=== PATIENT | male | born 1995 | race Caucasian/White ===

== ENCOUNTER 2022-03-29 13:02 | Outpatient (CLI) | payer OTHER, MEDICAID, SELFPAY ==
[2022-03-29 21:54] LABS: Albumin* 4.8 g/dL (3.3-5.0)
[2022-03-29 21:55] LABS: Chloride* 109 mmol/L (96-114); Sodium* 144 mmol/L (135-149)
[2022-03-29 21:56] LABS: Potassium* 4.3 mmol/L (3.6-5.1)
[2022-03-29 21:57] LABS: Bilirubin Total* 0.5 mg/dL (0.1-1.5); Carbon Dioxide* 24 mmol/L (20-32); Cholesterol* 112 mg/dL (90-199); Creatinine* 1.3 mg/dL (0.5-1.5); Estimated Glomerular Filt Rate 79 ml/min
[2022-03-29 21:58] LABS: Alanine Aminotransferase* 38 U/L (4-50); Alkaline Phosphatase* 117 U/L (40-150); Aspartate Amino Transferase* 28 U/L (12-35); Blood Urea Nitrogen* 13 mg/dL (5-24); Calcium* 9.8 mg/dL (8.4-10.6); Glucose* 92 mg/dL (60-115); Total Protein* 7.2 g/dL (6.0-8.3); Triglycerides* 239 mg/dL (40-149)
[2022-03-29 21:59] LABS: HDL Cholesterol* 29 mg/dL (>=40); LDL Cholesterol Calculated 35 mg/dL (<100)
[2022-03-29 22:13] LABS: Vitamin D 25 Hydroxy* 50 ng/mL (30-80)
== END 2022-03-29 13:03 | disposition home or self-care (01) ==
PROVIDERS: PCP Family Medicine; Visit Provider Family Medicine
DX: Z00.00 Encounter for general adult medical examination without abnormal findings (principal); E55.9 Vitamin D deficiency, unspecified; E03.9 Hypothyroidism, unspecified; Z13.6 Encounter for screening for cardiovascular disorders
CPT/HCPCS: 80053; 80061; 82306; 84443

== ENCOUNTER 2022-04-04 07:21 | Emergency (ER) | payer OTHER, MEDICAID, SELFPAY ==
[2022-04-04 07:24] VITALS: BP 164/92; PULSE 57; RESP 16; TEMP 36.8; O2SAT 98; BMI 32.5
--- NOTE | 2022-04-04 07:47 | ED.EYEPROB ---
HPI - Eye Problem General Chief complaint: Eye Problems Stated complaint: burned eyes, plasma cutting Time Seen by Provider: 04/04/22 07:35 History of Present Illness HPI Narrative: 26-year-old young man presenting to the emergency department with complaint of burning eye pain. Using a plasma cutter yesterday and while protected eyes from particles was not protected adequately from the light. Woke with increased eye pain and burning. Good deal of photophobia. Has used the Eye Clinic in [place] in the past. This is where he lives. Related Data Home Medications Medication Instructions Recorded Confirmed oxcarbazepine 300 mg tablet 300 mg PO BID 10/11/21 04/04/22 clonidine HCl 0.1 mg tablet 0.1 mg PO TID 03/29/22 04/04/22 fluoxetine 40 mg capsule 40 mg PO DAILY 03/29/22 04/04/22 trazodone 150 mg tablet 150 mg PO QDAY 03/29/22 04/04/22 Previous Rx's Medication Instructions Recorded levothyroxine 200 mcg tablet 200 mcg PO QDAY #30 tabs 03/29/22 Allergies Allergy/AdvReac Type Severity Reaction Status Date / Time No Known Allergies Allergy Verified 04/04/22 08:28 Review of Systems Status of ROS: Reports: 6 or more systems reviewed and unremarkable except as noted in History and below [facility] Medical History (Updated 04/04/22 @ 08:38 by Carlton Stacy MD) Asthma (02/17/12) Excessive anger 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 Primarily lives w/dad; parents in 2014 Non-smoker Smoking Status: Never smoker Exam Narrative: Exam Narrative: Pleasant. Wearing eyeglasses. Clearly quite photophobic. Eyes are watering. Rhinorrhea. Examination of the eye shows diffuse scleral injection. Pupils are reactive to light accommodation. Rather sensitive though. I do place tetracaine to allow for further exam. More close up inspection I do not appreciate any foreign body. I did not examine further with slit-lamp or fluorescein due to tenderness. Const: Vital Signs, click to edit/add: Vital Signs - 24 hr 04/04/22 07:24 Temperature 98.2 F Pulse Rate [Right Pulse Oximeter] 57 L Respiratory Rate 16 Blood Pressure [Ri ght Upper Arm] 164/92 H Pulse Oximetry 98 Oxygen Delivery Me thod Room Air Documenting provider has reviewed patient's vital signs: yes Course Vital Signs Vital signs: Initial Vital Signs Temperature 98.2 F 04/04/22 07:24 Temperature Source Temporal Artery Scan 04/04/22 07:24 Pulse Rate 57 L 04/04/22 07:24 Respiratory Rate 16 04/04/22 07:24 Blood Pressure 164/92 H 04/04/22 07:24 Blood Pressure Mean 116 04/04/22 07:24 Blood Pressure Position Sitting 04/04/22 07:24 Pulse Oximetry 98 04/04/22 07:24 Oxygen Delivery Method 04/04/22 07:24 Vital Signs Temperature 98.2 F 04/04/22 07:24 Pulse Rate 57 L 04/04/22 07:24 Respiratory Rate 16 04/04/22 07:24 Blood Pressure 164/92 H 04/04/22 07:24 Pulse Oximetry 98 04/04/22 07:24 Oxygen Delivery Method 04/04/22 07:24 Temperature 98.2 F 04/04/22 07:24 Pulse Rate 57 L 04/04/22 07:24 Respiratory Rate 16 04/04/22 07:24 Blood Pressure 164/92 H 04/04/22 07:24 Pulse Oximetry 98 04/04/22 07:24 Oxygen Delivery Method 04/04/22 07:24 MDM - Eye Problem MDM Narrative Medical decision making narrative: Dosed with tetracaine did offer temporary relief. Reached out to [facility] and spoke with Dr. Mendoza. Will be also placing cyclopentolate drops and erythromycin ointment. Ordered for ibuprofen here. Discharge Plan Discharge Clinical Impression: Line Maintenance's flash of both eyes Patient Disposition: Home, Self-Care Condition: Stable Additional Instructions: Can take up to 800 mg of ibuprofen per dose or up to 1000 mg of acetaminophen per dose. Alternative to the ibuprofen might be up to 500 mg naproxen 2 times daily. The ibuprofen or naproxen would probably be good to take with a little food. Place erythromycin ophthalmic ointment 4 times daily with the last dose at bedtime. The cyclopentolate drops can be used up to 4 times daily. You probably won't need them beyond 3 days. You should be feeling better by this evening or tomorrow morning. If you are still very uncomfortable in 3 days, please be seen. I did speak with on-call provider at [facility] today. They would be happy to see you if needed or you can follow-up at your own eye clinic. Prescriptions: No Action oxcarbazepine 300 mg tablet 300 mg PO BID clonidine HCl 0.1 mg tablet 0.1 mg PO TID fluoxetine 40 mg capsule 40 mg PO DAILY trazodone 150 mg tablet 150 mg PO QDAY levothyroxine 200 mcg tablet 200 mcg PO QDAY Qty: 30 1RF Follow Up/Referrals: Wesly Smith MD [Referring] - Stand Alone Forms: [employer] Info Instructions
[2022-04-04] MEDS: TETRACAINE 0.5% OPHTH 2 DROP EYE-BOTH (08:10)
[2022-04-04] MEDS: IBUPROFEN 400 MG TABLET 800 MG PO (08:19)
== END 2022-04-04 08:55 | disposition home or self-care (01) ==
PROVIDERS: Emergency Provider Family Medicine; PCP Family Medicine
DX: T26.32XA Burns of other specified parts of left eye and adnexa, initial encounter (principal); T26.31XA Burns of other specified parts of right eye and adnexa, initial encounter; W89.0XXA Exposure to welding light (arc), initial encounter
CPT/HCPCS: 99283; A9270

== ENCOUNTER 2022-09-16 08:31 | Emergency (ER) | payer MEDICAID, SELFPAY ==
[2022-09-16 08:38] VITALS: BP 143/82; PULSE 83; RESP 18; TEMP 36.5; O2SAT 97; BMI 33.4
--- NOTE | 2022-09-16 09:31 | CRLHL7_ITS ---
For Patients: As a result of the Cures Act, medical imaging exams and procedure reports are released immediately into your electronic medical record. You may view this report before your referring provider. If you have questions, please contact your health care provider. INDICATION: Injury. TECHNIQUE: Left wrist 3 view. COMPARISON: None. FINDINGS: There is a subtle transverse lucency through the distal pole of the scaphoid bone which may represent a nondisplaced fracture. No dislocation. Soft tissues are unremarkable. IMPRESSION: Possible subtle nondisplaced fracture through the distal pole of the scaphoid bone. Correlate for any tenderness in this region. Dictated by Nanci Collins MD @ 09/16/2022 11:27:19 AM (Electronically Signed)
--- NOTE | 2022-09-16 09:32 | ED_ITS ---
HPI - Extremity Injury (Upper) General Chief Complaint: Extremity Pain/Injury, Upper Stated Complaint: left wrist pain Time Seen by Provider: 09/16/22 09:29 History of Present Illness HPI narrative: This 26-year-old male comes in reporting pain in his left wrist from an injury that occurred about a week ago. He states that he was lifting a cabinet and felt a pop in his left wrist. Since then he has had persistent pain. He reports a remote injury of a wrist fracture. He does have normal range of motion but experiences increased pain when doing so. Related Data Home Medications Medication Instructions Recorded Confirmed oxcarbazepine 300 mg tablet 300 mg PO BID 10/11/21 04/04/22 clonidine HCl 0.1 mg tablet 0.1 mg PO TID 03/29/22 04/04/22 fluoxetine 40 mg capsule 40 mg PO DAILY 03/29/22 04/04/22 trazodone 150 mg tablet 150 mg PO QDAY 03/29/22 04/04/22 Previous Rx's Medication Instructions Recorded levothyroxine 200 mcg tablet See Rx Instructions .Route 05/16/22 .COMPLEX #90 tabs ketorolac 10 mg tablet 10 mg PO Q8H 5 days #15 tabs 09/16/22 Allergies Allergy/AdvReac Type Severity Reaction Status Date / Time No Known Allergies Allergy Verified 09/16/22 08:52 Review of Systems Status of ROS: Reports: 10 or more systems reviewed and unremarkable except as noted in History and below Narrative: Constitutional: No fevers, no weight gain or loss. Eyes: No discharge. No vision changes. HENT: No congestion, no sore throat, no ear pain. Cardiovascular: No chest pain, no palpitations. Respiratory: No shortness of breath, no wheezes, no cough. Gastrointestinal: No abdominal pain, no vomiting, no diarrhea. Genitourinary: No dysuria, no hematuria. Musculoskeletal: Normal range of motion. Skin: No rashes, no pruritis. Neurological: No dizziness, weakness, sensory change, speech change. Endo/Heme/Allergies: No bruising or bleeding. No polydipsia. Pysch: no suicidality, no anxiety, no insomnia. All other systems reviewed and are negative. 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) ?S06.9X9S - Unspecified intracranial injury with loss of consciousness of unspecified duration, sequela (ICD-10) Asthma (02/17/12) ?J45.909 - Unspecified asthma, uncomplicated (ICD-10) Surgical History (Updated 10/10/21 @ 09:42 by Hadley Lazo) History of tympanostomy tube placement ?Z96.22 - Myringotomy tube(s) status (ICD-10) History of tonsillectomy ?Z90.89 - Acquired absence of other organs (ICD-10) History of cholecystectomy ?Z90.49 - Acquired absence of other specified parts of digestive tract (ICD-1 0) Family History (Updated 10/10/21 @ 09:43 by Hadley Lazo) Mother Asthma Von Willebrand disease Sister Asthma Von Willebrand disease Maternal Grandfather Type 1 diabetes mellitus Father Sleep apnea Social History (Updated 10/10/21 @ 09:44 by Hadley Lazo) Narrative: Lives with family. Primarily lives w/dad; parents in 2014 Non-smoker Smoking Status: Never smoker Do you use any of these nicotine containing products: Smokeless Tobacco Second hand tobacco smoke exposure: No How often do you have a drink containing alcohol: never How often do you have six or more drinks on one occasion: Never AUDIT-C Alcohol total score: 0 Non-prescribed substance use: denies use service: No Exam Narrative: Exam Narrative: Constitutional: Well-developed, well-nourished, no acute distress. HEENT: Normocephalic, atraumatic. Neck: Normal range of motion. Nontender. Supple. Heart: Intact distal pulses. Lungs: No chest discomfort. No wheezes, rhonchi, or rales. Abdomen: Nontender. Back: Normal range of motion. Extremities: Diffuse tenderness in the left wrist without any sign of deformity or swelling. Skin: Intact. No rash. Warm. No erythema or pallor. Neurologic: No altered sensation. No weakness. Alert and oriented. Psychiatric: No suicidality. No anxiety or depression. No insomnia. Nursing notes and vitals signs are reviewed. Const: Vital Signs, click to edit/add: Vital Signs - 24 hr 09/16/22 08:38 Temperature 97.7 F Pulse Rate [Pulse Oximeter] 83 Respiratory Rate 18 Blood Pressure [Le ft Upper Arm] 143/82 H Pulse Oximetry 97 Oxygen Delivery Me thod Room Air Course Vital Signs Vital signs: Initial Vital Signs Temperature 97.7 F 09/16/22 08:38 Temperature Source Temporal Artery Scan 09/16/22 08:38 Pulse Rate 83 09/16/22 08:38 Respiratory Rate 18 09/16/22 08:38 Blood Pressure 143/82 H 09/16/22 08:38 Blood Pressure Mean 102 09/16/22 08:38 Blood Pressure Position Sitting 09/16/22 08:38 Pulse Oximetry 97 09/16/22 08:38 Oxygen Delivery Method Room Air 09/16/22 08:38 Vital Signs Temperature 97.7 F 09/16/22 08:38 Pulse Rate 83 09/16/22 08:38 Respiratory Rate 18 09/16/22 08:38 Blood Pressure 143/82 H 09/16/22 08:38 Pulse Oximetry 97 09/16/22 08:38 Oxygen Delivery Method Room Air 09/16/22 08:38 Temperature 97.7 F 09/16/22 08:38 Pulse Rate 83 09/16/22 08:38 Respiratory Rate 18 09/16/22 08:38 Blood Pressure 143/82 H 09/16/22 08:38 Pulse Oximetry 97 09/16/22 08:38 Oxygen Delivery Method Room Air 09/16/22 08:38 MDM - Extremity Injury (Upper) MDM Narrative Medical decision making narrative: This patient comes in with persistent pain in his left wrist from an injury that occurred about a week ago. X-ray imaging by my review shows now sign of fracture or dislocation. Most likely this is soft tissue injury of his wrist. The patient did receive a wrist splint and a prescription for Toradol. He is encouraged to get out of the splint regularly and work on range of motion and increase activity as tolerated. Discharge Plan Discharge Clinical Impression: Left wrist sprain Patient Disposition: Home, Self-Care Condition: Unchanged Additional Instructions: Wear splint as needed. Take medication as needed and directed. Increase activity as tolerated. Follow up with clinic if not improving. Prescriptions: New ketorolac 10 mg tablet 10 mg PO Q8H 5 Days Qty: 15 0RF No Action oxcarbazepine 300 mg tablet 300 mg PO BID clonidine HCl 0.1 mg tablet 0.1 mg PO TID fluoxetine 40 mg capsule 40 mg PO DAILY trazodone 150 mg tablet 150 mg PO QDAY levothyroxine 200 mcg tablet See Rx Instructions .ROUTE .COMPLEX Qty: 90 3RF Dose Instruction: TAKE ONE TABLET BY MOUTH EVERY DAY Rx Instructions: TAKE ONE TABLET BY MOUTH EVERY DAY Follow Up/Referrals: Chary Del Toro DO [Primary Care Provider] - Stand Alone Forms: [employer] Info Instructions
== END 2022-09-16 11:15 | disposition home or self-care (01) ==
PROVIDERS: Emergency Provider Emergency Medicine Emergency Medical Services; PCP Family Medicine
DX: S63.502A Unspecified sprain of left wrist, initial encounter (principal); X50.0XXA Overexertion from strenuous movement or load, initial encounter
CPT/HCPCS: 29125; 73110; 99283; 99284

== ENCOUNTER 2022-11-04 08:21 | Emergency (ER) | payer MEDICAID, SELFPAY ==
[2022-11-04 08:24] VITALS: BP 142/82; PULSE 86; RESP 16; TEMP 36.3; O2SAT 99; BMI 37.9
--- NOTE | 2022-11-04 08:37 | ED_ITS ---
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 Patient noted that 1 and half months ago he was lifting some heavy steel and had a sudden onset of left-sided low back pain with radiation superiorly and inferiorly into the back of his leg. He had no loss of bowel or bladder control at that time and the pain lasted for a few days. He was seen by his worker's comp at which time x-rays were taken any tells me that they were okay. He was then placed in physical therapy for approximately 6 sessions. His worker's comp company changed and they discontinued the physical therapy in told him that he would need to stretch. He has been on light duty since that time. Unfortunately he still continues to have low back pain intermittently that will radiate into his leg. He is having a hard time with any bending as it increases his discomfort. He has not lost control of his bowel or bladder and denies any perineal numbness. He does not like taking pain medications. He has tried to continue his stretching. He is interested in MRI and further workup today as he feels he is not getting any better. He is not experiencing any tripping or numbness and tingling of the foot. Related Data Home Medications Medication Instructions Recorded Confirmed oxcarbazepine 300 mg tablet 300 mg PO BID 10/11/21 11/04/22 clonidine HCl 0.1 mg tablet 0.1 mg PO TID 03/29/22 11/04/22 fluoxetine 40 mg capsule 40 mg PO DAILY 03/29/22 11/04/22 trazodone 150 mg tablet 150 mg PO QDAY 03/29/22 11/04/22 desmopressin 0.2 mg tablet 0.2 - 0.4 mg PO QPM 11/04/22 11/04/22 lithium carbonate 450 mg 900 mg PO BID 11/04/22 11/04/22 tablet,extended release Previous Rx's Medication Instructions Recorded levothyroxine 200 mcg tablet See Rx Instructions .Route 05/16/22 .COMPLEX #90 tabs Allergies Allergy/AdvReac Type Severity Reaction Status Date / Time No Known Allergies Allergy Verified 11/04/22 08:29 Review of Systems Status of ROS: Reports: 6 or more systems reviewed and unremarkable except as noted in History and below Const: Denies: fever ENMT: Denies: neck pain Cardio: Denies: chest pain or shortness of breath with exertion Resp: Denies: shortness of breath GI: Denies: abdominal pain : Denies: urinary urgency Musculo: Reports: back pain and extremity pain (Intermittently); Denies: neck pain Neuro: Denies: numbness in extremities or lack of coordination PFSH PFS Medical History Excessive anger ?R45.4 - Irritability and anger (ICD-10) Pyloric stenosis (02/17/12) ?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) Left calcaneal fracture ?S92.002A - Unspecified fracture of left calcaneus, initial encounter for closed fracture (ICD-10) 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) ?S06.9X9S - Unspecified intracranial injury with loss of consciousness of unspecified duration, sequela (ICD-10) Asthma (02/17/12) ?J45.909 - Unspecified asthma, uncomplicated (ICD-10) Surgical History History of tympanostomy tube placement ?Z96.22 - Myringotomy tube(s) status (ICD-10) History of tonsillectomy ?Z90.89 - Acquired absence of other organs (ICD-10) History of cholecystectomy ?Z90.49 - Acquired absence of other specified parts of digestive tract (ICD- 10) Family History Mother Asthma Von Willebrand disease Sister Asthma Von Willebrand disease Maternal Grandfather Type 1 diabetes mellitus Father Sleep apnea Social History Narrative: Lives with family. Primarily lives w/dad; parents in 2015 Non-smoker Smoking Status: Never smoker Do you use any of these nicotine containing products: Smokeless Tobacco Second hand tobacco smoke exposure: No How often do you have a drink containing alcohol: never How often do you have six or more drinks on one occasion: Never AUDIT-C Alcohol total score: 0 Non-prescribed substance use: denies use service: No Exam Narrative: Exam Narrative: Alert and oriented. Very pleasant young man. No acute distress. External ears eyes nose clear. No respiratory distress. Palpation down thoracic and lumbar spine does not yield any tenderness. No tenderness in the sciatic notch. Patient has full sensation of the lower extremities. He has intact hip flexion knee extension with equal strength. He did have some complaints of left-sided back pain especially with hip flexion. Knee flexion was slightly weaker on the left. Very subtle. Patient has full sensation of the lower extremities. DTRs 1+ at the knees and symmetrical. Slight weakness dorsiflexion of the left great toe. Ankle strength is intact. Bending at the waist increases discomfort at approximately 25?. Const: Vital Signs, click to edit/add: Vital Signs - 24 hr 11/04/22 08:24 Temperature 97.3 F L Pulse Rate [Right Pulse Oximeter] 86 Respiratory Rate 16 Blood Pressure [Ri ght Upper Arm] 142/82 H Pulse Oximetry 99 Oxygen Delivery Me thod Room Air Documenting provider has reviewed patient's vital signs: yes Course Vital Signs Vital signs: Initial Vital Signs Temperature 97.3 F L 11/04/22 08:24 Temperature Source Temporal Artery Scan 11/04/22 08:24 Pulse Rate 86 11/04/22 08:24 Respiratory Rate 16 11/04/22 08:24 Blood Pressure 142/82 H 11/04/22 08:24 Blood Pressure Mean 102 11/04/22 08:24 Blood Pressure Position Sitting 11/04/22 08:24 Pulse Oximetry 99 11/04/22 08:24 Oxygen Delivery Method Room Air 11/04/22 08:24 Vital Signs Temperature 97.3 F L 11/04/22 08:24 Pulse Rate 86 11/04/22 08:24 Respiratory Rate 16 11/04/22 08:24 Blood Pressure 142/82 H 11/04/22 08:24 Pulse Oximetry 99 11/04/22 08:24 Oxygen Delivery Method Room Air 11/04/22 08:24 Temperature 97.3 F L 11/04/22 08:24 Pulse Rate 86 11/04/22 08:24 Respiratory Rate 16 11/04/22 08:24 Blood Pressure 142/82 H 11/04/22 08:24 Pulse Oximetry 99 11/04/22 08:24 Oxygen Delivery Method Room Air 11/04/22 08:24 MDM - Back Pain/Injury MDM Narrative Medical decision making narrative: 1. Low back pain with radiculopathy-patient has very subtle dorsiflexion weakness of the left great toe. He has discomfort with any sort of flexion or extension of the low back flexion seems to increases pain more. At this time I do think he needs to see back child care attendant and I have provided the phone number for him as well as the names of Dr. Estrella and David. I do suggest MRI as is has been 6 weeks since his injury. Because this is worker's comp, I have written my suggestions for Gio to give to his workplace. In the meantime he does not like taking medications and therefore suggest continued stretching and icing of the area of discomfort. He will need to seek medical attention if he develops increasing weakness, increasing pain, loss of bowel or bladder control and as needed. 2. Disposition-home at this time. Return as needed. New 9 no x-rays done today as he has previous x-rays and they were reassuring per patient. No red flag symptoms today to indicate emergent MRI in the ER. Medical Records Attestation: I reviewed the patient's medical records. Discharge Plan Discharge Clinical Impression: Low back pain Qualifiers: Chronicity: unspecified Back pain laterality: left Sciatica presence: unspecified whether sciatica present Qualified Code(s): M54.50 - Low back pain, unspecified Radiculopathy Qualifiers: Spinal region: lumbosacral Qualified Code(s): M54.17 - Radiculopathy, lumbosacral region Patient Disposition: Home, Self-Care Condition: Unchanged Additional Instructions: At this time I recognize that you do not like taking medications. If needed you may use ibuprofen for discomfort. I recommend continued stretching of the low back with ice placed on low back after the stretching. Overall I think that you do need consultation with a back child care attendant. I suggest seeing Dr. Hernandez or Delores at the [facility]. The phone number is [phone]. I suspect that they will order an MRI and then place you in active physical therapy for strengthening of the low back. Seek medical attention for sudden worsening symptoms especially loss of bowel or bladder control, weakness that is worsening and as needed. Prescriptions: No Action oxcarbazepine 300 mg tablet 300 mg PO BID clonidine HCl 0.1 mg tablet 0.1 mg PO TID fluoxetine 40 mg capsule 40 mg PO DAILY trazodone 150 mg tablet 150 mg PO QDAY desmopressin 0.2 mg tablet 0.2 - 0.4 mg PO QPM lithium carbonate 450 mg tablet extended release 900 mg PO BID levothyroxine 200 mcg tablet See Rx Instructions .ROUTE .COMPLEX Qty: 90 3RF Dose Instruction: TAKE ONE TABLET BY MOUTH EVERY DAY Rx Instructions: TAKE ONE TABLET BY MOUTH EVERY DAY Follow Up/Referrals: Chary Del Toro DO [Primary Care Provider] - Stand Alone Forms: [employer] Info Instructions
== END 2022-11-04 09:34 | disposition home or self-care (01) ==
LOC: ED 09:32
PROVIDERS: Emergency Provider Family Medicine
DX: M54.16 Radiculopathy, lumbar region (principal)
CPT/HCPCS: 99283

== ENCOUNTER 2024-01-09 12:33 | Emergency (ER) | payer MEDICAID, SELFPAY ==
[2024-01-09 12:54] VITALS: BP 166/76; PULSE 85; RESP 18; TEMP 37.3; O2SAT 99; BMI 37.9
--- NOTE | 2024-01-09 14:24 | ED.GENADULT ---
HPI - General Adult General Date Seen: 01/09/24 Chief complaint: Extremity Pain/Injury, Lower Stated complaint: Knee injury Time Seen by Provider: 01/09/24 14:17 History of Present Illness HPI narrative: 28-year-old male with a past medical history of vitamin-D deficiency, hypothyroidism, epilepsy with complex partial seizures, adrenal insufficiency presenting to the ER today with left knee pain. He injured his knee on Friday, 3 days ago when he stepped into a hole and felt like he hyperextended his knee. He has been trying to ice his of knee without much improvement in his pain. He was not having too much pain on Friday that after his accident but has had increasing pain last night and into today. He has been taking ibuprofen without much improvement in pain. He has pain when he tries to walk on his knee and pain when he tries to extend his knee. He is not able to fully extend his knee. Pain is predominantly in the anterior part of the knee. He sometimes feels like the knee might lock up with the stretches at all the way out. He has a history of of a distal femur fracture about 20 years ago. Related Data Home Medications ?Medication ?Instructions ?Recorded ?Confirmed oxcarbazepine 300 mg tablet 300 mg PO BID 10/11/21 04/22/23 clonidine HCl 0.1 mg tablet 0.1 mg PO TID 03/29/22 04/22/23 fluoxetine 40 mg capsule 40 mg PO DAILY 03/29/22 04/22/23 trazodone 150 mg tablet 150 mg PO QDAY 03/29/22 04/22/23 desmopressin 0.2 mg tablet 0.2 - 0.4 mg PO QPM 11/04/22 04/22/23 lithium carbonate 450 mg 900 mg PO BID 11/04/22 04/22/23 tablet,extended release lurasidone 20 mg tablet mg PO 04/22/23 04/22/23 naproxen sodium 220 mg capsule 440 mg PO QDAY 04/22/23 04/22/23 ([place]) Previous Rx's ?Medication ?Instructions ?Recorded cephalexin 500 mg capsule 500 mg PO BID #14 caps 04/22/23 levothyroxine 200 mcg tablet 200 mcg PO DAILY #60 tabs 11/20/23 Allergies Allergy/AdvReac Type Severity Reaction Status Date / Time No Known Allergies Allergy Verified 01/09/24 12:54 [facility] Medical History Excessive anger ?R45.4 - Irritability and anger (ICD-10) Pyloric stenosis (02/17/12) ?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) Left calcaneal fracture ?S92.002A - Unspecified fracture of left calcaneus, initial encounter for closed fracture (ICD-10) 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) ?S06.9X9S - Unspecified intracranial injury with loss of consciousness of unspecified duration, sequela (ICD-10) Asthma (02/17/12) ?J45.909 - Unspecified asthma, uncomplicated (ICD-10) Surgical History History of tympanostomy tube placement ?Z96.22 - Myringotomy tube(s) status (ICD-10) History of tonsillectomy ?Z90.89 - Acquired absence of other organs (ICD-10) History of cholecystectomy ?Z90.49 - Acquired absence of other specified parts of digestive tract (ICD-10) Family History Mother Asthma Von Willebrand disease Sister Asthma Von Willebrand disease Maternal Grandfather Type 1 diabetes mellitus Father Sleep apnea Social History Narrative: Lives with family. Primarily lives w/dad; parents in 2014 Non-smoker Smoking Status: Current every day smoker What tobacco products do you use: cigarettes Do you use any of these nicotine containing products: Smokeless Tobacco Second hand tobacco smoke exposure: No How often do you have a drink containing alcohol: 2-4 times a month How often do you have six or more drinks on one occasion: Never AUDIT-C Alcohol total score: 2 Non-prescribed substance use: denies use service: No Exam Narrative: Exam Narrative: Constitutional: Appears well-developed and well-nourished. Active. Non-toxic. HENT: Head: Atraumatic. No signs of injury. Nose: No nasal discharge. Mouth/Throat: Mucous membranes are moist. Pharynx is normal. Tonsils symmetric. Uvula midline. Airway patent. Eyes: Conjunctivae normal and EOM are normal. Pupils are equal, round, and reactive to light. Right eye exhibits no discharge. Left eye exhibits no discharge. No icterus. Neck: Normal range of motion. Neck supple. No adenopathy. No stridor. Cardiovascular: Normal rate and regular rhythm. No murmur heard. No murmurs, rubs, or gallops. Brisk capillary refill Pulmonary/Chest: Effort normal. No stridor. No respiratory distress. No wheezes.No rhonchi. No rales. No retractions. Abdominal: Soft. Bowel sounds are normal. No distension. No mass. There is no tenderness. There is no rebound and no guarding. Musculoskeletal: uninjured and normal except for his left knee. Left lower extremity: Normal inspection. No bruising, ecchymosis, deformity. Hip nontender. Quadriceps, hamstring, femoral shaft nontender. Distal femur nontender. Quadriceps tendon nontender. He is tender over the patellar tendon and the tibial tuberosity. No crepitus. No bruising or swelling there. No visible or palpable knee joint effusion. He is able to flex his knee to just beyond 90? and extend within about 10-20 degrees of full extension. Complete extension is limited by pain and apprehension. No obvious ligamentous laxity of the ACL, PCL, MCL, LCL but exam is limited by apprehension. Posteriorly is nontender. No palpable mass or bruising in the popliteal fossa. Chou, ankle, foot are nontender. Gastrocnemius and Achilles nontender. Intact distal sensory function in the medial and lateral malleoli, medial and lateral foot, dorsal 1st webspace, sole of the foot. Intact toe wiggling. Strong DP pulse with brisk distal cap refill. Neurological: Alert. Normal strength. No cranial nerve deficit or sensory deficit. Coordination normal. GCS eye subscore is 4. GCS verbal subscore is 5. GCS motor subscore is 6. Skin: Skin is warm. No rash noted. Const: Vital Signs, click to edit/add: Vital Signs - 24 hr 01/09/24 12:54 Temperature 99.2 F Pulse Rate [Pulse Oximeter] 85 Respiratory Rate 18 Blood Pressure [Ri ght Upper Arm] 166/76 H Pulse Oximetry 99 Oxygen Delivery Me thod Room Air Course Vital Signs Vital signs: Initial Vital Signs Temperature 99.2 F 01/09/24 12:54 Temperature Source Temporal Artery Scan 01/09/24 12:54 Pulse Rate 85 01/09/24 12:54 Pulse Rhythm Regular 01/09/24 12:54 Respiratory Rate 18 01/09/24 12:54 Blood Pressure 166/76 H 01/09/24 12:54 Blood Pressure Mean 106 H 01/09/24 12:54 Blood Pressure Position Sitting 01/09/24 12:54 Pulse Oximetry 99 01/09/24 12:54 Oxygen Delivery Method Room Air 01/09/24 12:54 Vital Signs Temperature 99.2 F 01/09/24 12:54 Pulse Rate 85 01/09/24 12:54 Respiratory Rate 18 01/09/24 12:54 Blood Pressure 166/76 H 01/09/24 12:54 Pulse Oximetry 99 01/09/24 12:54 Oxygen Delivery Method Room Air 01/09/24 12:54 Temperature 99.2 F 01/09/24 12:54 Pulse Rate 85 01/09/24 12:54 Respiratory Rate 18 01/09/24 12:54 Blood Pressure 166/76 H 01/09/24 12:54 Pulse Oximetry 99 01/09/24 12:54 Oxygen Delivery Method Room Air 01/09/24 12:54 Medications Administered Medications: Discontinued Medications Generic Name Dose Route Start Last Admin Trade Name Freq PRN Reason Stop Dose Admin Ibuprofen 600 mg 01/09/24 14:49 01/09/24 14:57 Ibuprofen 600 Mg Tablet PO 01/09/24 14:50 600 mg ONCE ONE Administration Medical Decision Making [facility] Narrative Medical decision making narrative: 28-year-old male presenting to the ER today with left knee pain, primarily anterior knee pain as well as limited range of motion after he had an injury that occurred 2 nights ago. He stepped in a hole and hyperextended his knee. He is neurovascularly intact and history and physical are not consistent with a complete knee joint dislocation. X-rays are negative for any acute fracture. No evidence for any knee effusion. No redness or warmth suggest a nontraumatic cause of knee pain such as gouty or septic arthritis. Suspicion here is for probable internal derangement of the knee. Suspicious for possible meniscus tear or ligamentous injury. However, on my exam I cannot detect any obvious ligamentous laxity today. He will place him into a knee immobilizer. Will need close outpatient follow-up with orthopedic clinic within the next 3-5 days for re-evaluation. If symptoms are persistent may need MRI for further evaluation. Return precautions reviewed. Imaging Data XR left knee: Attestation: I have reviewed the pertinent imaging results. My impression: No acute fracture or dislocation. Radiologist's impression: Findings/Impression: Bones: Alignment is normal. No displaced fractures or bone lesions. Joint spaces: Unremarkable. Soft tissues: Unremarkable. Discharge Plan Discharge Clinical Impression: Injury of knee, left Patient Disposition: Home, Self-Care Condition: Stable Instructions: Crutch Instructions (ED), Knee Pain (ED) Additional Instructions: Your x-rays look good. Nothing broken or dislocated in her knee. However I am concerned he may have injured the cartilage (the meniscus) and or the ligaments in your knee. For now wear the knee brace to protect her knee from unusual bending or twisting. Keep resting her knee as much as possible. Use Tylenol or ibuprofen if needed for pain. You can use ice for 15 minutes every 2 hours to help reduce swelling and pain. Please follow-up with an orthopedic doctor to recheck your knee in the next 2-4 days. If needed you can call the [facility] Orthopedic Department to arrange an ER follow-up appointment. Call [phone] to arrange an ER follow-up appointment. Prescriptions: No Action lurasidone 20 mg tablet PO naproxen sodium [Aleve] 220 mg capsule 440 mg PO QDAY cephalexin 500 mg capsule 500 mg PO BID Qty: 14 0RF oxcarbazepine 300 mg tablet 300 mg PO BID clonidine HCl 0.1 mg tablet 0.1 mg PO TID fluoxetine 40 mg capsule 40 mg PO DAILY trazodone 150 mg tablet 150 mg PO QDAY desmopressin 0.2 mg tablet 0.2 - 0.4 mg PO QPM lithium carbonate 450 mg tablet extended release 900 mg PO BID levothyroxine 200 mcg tablet 200 mcg PO DAILY Qty: 60 0RF Follow Up/Referrals: Dara Oglesby PA-C [Primary Care Provider] - Stand Alone Forms: [facility] Info Instructions
--- NOTE | 2024-01-09 14:25 | CRLHL7_ITS ---
For Patients: As a result of the Cures Act, medical imaging exams and procedure reports are released immediately into your electronic medical record. You may view this report before your referring provider. If you have questions, please contact your health care provider. Indication: Trauma. Technique: Left knee, 3 views. Comparison: None. Findings/Impression: Bones: Alignment is normal. No displaced fractures or bone lesions. Joint spaces: Unremarkable. Soft tissues: Unremarkable. Dictated by David Escobar MD @ 01/09/2024 2:50:21 PM (Electronically Signed)
[2024-01-09] MEDS: IBUPROFEN 600 MG TABLET PO (14:57)
== END 2024-01-09 15:19 | disposition home or self-care (01) ==
PROVIDERS: Emergency Provider Emergency Medicine; PCP Physician Assistant Medical
DX: M25.562 Pain in left knee (principal); X50.1XXA Overexertion from prolonged static or awkward postures, initial encounter
CPT/HCPCS: 73562; 99282; 99283; A9270

== ENCOUNTER 2024-09-29 06:02 | Emergency (ER) | payer MEDICAID, SELFPAY ==
--- OUTSIDE RECORDS SUMMARY | 2015-05-01 04:35 | XMS_ITS | Continuity of Care Document ---
Author Organization [facility] Address [address] [address] [place] [address] Phone Care Team Providers Care Induction Heat Treater Name Role Phone Eloisa LÓPEZ, Junior Unavailable Unavaila ble Allergies, Adverse Reactions, Alerts Substance Reaction Status Criticality No Known Allergies Active No Inform ation Medications Medication Instructions Dosage Effective Dates (start - stop) Status Comments loperamide 2 mg tablet take 2 tablet by oral route 3 times every day as needed 4 MG - Active Bentyl 20 mg tablet take 1 tablet by ORA L route 2 times every day 20 MG - Active desmopressin 0.2 mg tablet take 2 tablet by oral route every day 0.4 MG - Active Tirosint 100 mcg capsule take 1 capsule by oral route every day 100 MCG - Active trazodone 50 mg tablet take 3 Tablet by Oral route every night 3 Tablet - Active oxcarbazepine 600 mg tablet take 1 tablet by oral route 2 times every day 600 MG - Active Vyvanse 50 mg capsule take 1 capsule by oral route every day in the morning 50 MG - Active lithium carbonate 300 mg capsule take 3 capsule by oral route 2 times every day 900 MG - Active minocycline 100 mg capsule take 1 capsule by oral route every day 100 MG - Active Vitamin B Complex tablet take 1 Tablet by Oral route every day 1 Tablet - Active melatonin 3 mg tablet take 1 Tablet by O ral route every bedtime as needed 1 Tablet - Active Procedures Procedure Date Init Hosp-da E&m Mod Severity 6 Offic/outpt E&m Estab Mod-hi 2 15 Routine Serum Collection Bld Ct; Hg/pltlt Ct Auto/compl 15 C-reactive Prot Comp Metabolic Panel Lipase Gg; Ige Gg; Iga, Igd, Igg, Igm, Ea Small Bowel PillCam Offic/outpt E&m Estab Low-mod 4 Offic/outpt E&m Estab Mod-hi 2 14 Ugi Endo; W/bx 1/mx Colonoscopy Flex; W/bx 1/mx Hepatic Function Panel Glutamyltransferase Gamma Offic/outpt E&m New Mod-hi Routine Serum Collection Advance Directives Directive Yes / No Effective Date File Name No Information Encounters Encounter Description Practice Location Reason(s) For Visit Diagnoses Date Provider Providers Copied on Encounter [facility] [address] [address], [place], [id number], tel:[phone] [facility] No Information 6 Eloisa Pacheco. [address], [id number], [place]. tel:[phone] Lb Cuenca MD. tel:[phone] Init Hosp-da E&m Mod Severity [facility] [address] [address], [place], [id number], [place] tel:[phone] [facility] No Information 6 Eloisa Pacheco. [address], [id number], [place]. tel:[phone] Offic/outpt E&m Estab Mod-hi 2 [facility], [address] [address], [place], [id number], [place] tel:[phone] [facility] GI Symptoms or Concerns (chief complaint) Abd Pain GeneralizedDi arrheaNausea And Vomiting 5 Eloisa Pacheco. [address] [facility], [facility], [place], [place], [id number], [place]. tel:[phone] Lb Cuenca MD. tel:[phone] erring Provider: Referral Self, USE FOR SELF REFERRALS. [facility], [address] [address], [place], [id number], [place] tel:[phone] [facility] No Information 4 No Information [facility], [address] [address], [place], [id number], [place] tel:[phone] Pediatric [facility] Abd Pain GeneralizedGe neralized abdominal pain 4 No Information Lb Cuenca MD. tel:[phone] [facility], [address] [address], [place], [id number], [place] tel:[phone] Pediatric [facility] Diarrhea 4 Tona LÓPEZ Chacorta. [address] [facility], [facility], [place], [place], [id number], [place]. tel:[phone] Lb Cuenca MD. tel:[phone] erring Provider: Lb Romano, [address], [place], [address]. tel:[phone] Offic/outpt E&m Estab Low-mod [facility], [address] [address], [place], [id number], [place] tel:[phone] [facility] GI Symptoms or Concerns (chief complaint) DiarrheaAbd Pain Generalized 4 No Information Lb Cuenca MD. tel:[phone] cialist: Radha Saunders MD, [facility] [address], [place], [address]. tel:[phone] erring Provider: Referral Self, USE FOR SELF REFERRALS. [facility], [address] [address], [place], [id number], [place] tel:[phone] [facility] RUQ Pain Dec-0 6-201 [address]. [address] [place] [address], [facility] [address], [place], [id number], [place]. tel:[phone] Offic/outpt E&m Estab Mod-hi 2 [facility], [address] [address], [place], [id number], [place] tel:[phone] [facility] GI Symptoms or Concerns (chief complaint) RLQ PainDiarrhea Dec-0 1 [address] Tona Whatley. [address] [place] [address], [id number], [place]. tel:[phone] Lb Cuenca MD. tel:[phone] erring Provider: Referral Self, USE FOR SELF REFERRALS. [facility], [address] [address], [place], [id number], [place] tel:[phone] [facility] No Information 1 4 Tona Whatley. [address] [place] [address], [place], [place], [id number], [place]. tel:[phone] Referring Provider: Lb Romano, [address], [place], [address]. tel:[phone] [facility], [address] [address], [place], [id number], [place] tel:[phone] [facility] RUQ Pain 2 7 4 No Information Offic/outpt E&m New Mod-hi [facility], [address] [address], [place], [id number], [place] tel:[phone] [facility] RUQ Pain July-0 8-201 4 No Information Referring Provider: Lb Romano, [address], [place], [address]. tel:[phone] Family History Family Member Type Diagnosis Age At Onset Maternal grandmother Problem (finding) ulcerative coli tis Mother Problem (finding) Alive and well Father Problem (finding) Alive and well Sister Problem (finding) celiac disease Immunizations Vaccine Date Status Comments Influenza, seasonal, injectable, preservative free, 3 yrs or older (36 mos+) administered Note: Invalid d ocumented admin date was . ; Source: Other Provider Influenza, seasonal, injectable, preservative free, 3 yrs or older (36 mos+) administered Note: Invalid d ocumented admin date was . ; Source: Other Provider Payers Payer name Insurance type Covered democrat ID Cee powell(s) [place] Medical Assistance [id number] Social History Type Description Quantity Date Captured Comments Alcohol Use Details Unknown Caffeine Use Details Unknown Tobacco Use Status No Information Smoking Status No Information Sex Male Chief Complaint And Reason For Visit No Information Reason For Referral Reason For Referral No Information History Of Present Illness Encounter Date Complaint History Of Prese nt Illness GI Symptoms or Concerns This is a 18-year-old white male with the complex past medical history as follows;1. Status post laparoscopic cholecystectomy for biliary dyskinesia in December 2013.2. Traumatic brain injury with mood disorder.3. Seizure disorder on antiepileptic medications.4. Hypothyroidism, on thyroxine replacement.5. Gastroesophageal reflux.6. Reactive airway disease.Gio is well-known to GI Service, has been seen by many of my partners in the past for chronic abdominal symptoms. I note he has undergone extensive workup including ultrasound scan of the abdomen, HIDA scan, which showed ejection fraction of 30% compared to normal of 35%, because his pain used to be localized to right upper quadrant with normal liver enzymes and ultrasound scan. He underwent laparoscopic cholecystectomy in December 2013 and made uneventful recovery. He was asymptomatic for approximately three months.In the last three months, he reports generalized abdominal pain worse after eat GI Symptoms or Concerns Gio is accompanied by his parents. He is a 18 year old seen for follow up of abdominal pain and diarrhea. He was last seen in the office last week and was briefly admitted to [facility] after that visit. There, he had a nasogastric golytely cleanout followed by an upper endoscopy and colonoscopy. These were normal with biopsies normal (lactase pending). Previous evlaution (recent) is outlined in Dr. Carbone's note from last week.I last say Gio in the Spring. At that time, his pain was more prominently right upper quadrant with radiation to the right shoulder. A HIDA scan showed a mild delay in the ejection fraction of 30%. There appeared to be some radioisotope that flowed into the stomach. For this reason, he was started on ursodiol (for possible bile gastritis). There was an initial good response to this; however, he then developed this current illness. He recalls having diarrhea previously, but at the time of his last visit, his complaints were more focused on pain and nausea. This presentation seems different with this diarrhea up to 8 times daily and night waking with stool. He has gained over 20 lbs since his visit in the Spring. He is on synthroid for hypothyroidism, and levels have been followed by parent's report. GI Symptoms or Concerns This is a followup evaluation. He is a 18-year-old boy with history of ongoing abdominal pain who was recently evaluated by my partner Dr. Rachael Gamboa in July of this year. At that time, blood work was done and he was found to have mildly elevated gamma-GT of 44 with normal hepatic function panel. A HIDA scan was done and was noted to be borderline normal with an ejection fraction of 30%. He was then started on ursodiol but as per the mother, his symptoms have not improved. He continues to complain of abdominal pain primarily in the right lower quadrant and has been receiving pain medications. He is also frequently nauseous. He has been missing school because of his pain and his oral intake has been decreased. As per the mother, he does not have any flu-like symptoms. He is frequently nauseous but there is no history of any vomiting. He also has had intermittent diarrhea and could stool about eight to ten times a day. There is no history of passing any blood or mucus in t Functional Status Date Functional Assessmen t No Information Instructions Date Instruction Additional Infor vicki 1. Lactose/fructose- restricted diet.2. Screening labs were sent today including CBC, comprehensive metabolic panel, lipase, C-reactive protein, complete celiac panel, and immunoglobulin profile.3. Stool studies for C. difficile toxin and hemoccult.4. Symptomatic treatment with ondansetron 8 mg sublingual p.r.n. q. 6 hours.5. To use loperamide 4 mg p.r.n. q. 6 to 8 hours for diarrhea.6. Continue omeprazole b.i.d.7. If his symptom persists/worsens, may need further investigation.8. Followup in GI Clinic in three months. Related to Abd Pain Generalized Abdomen Ultrasound; Complete Rel ated to Abd Pain Generalized 1. We will repeat th e HIDA scan as this is already scheduled. 2. Gio has an upcoming visit scheduled with one of the surgeons at [facility]. We discussed that I am not certain his pain is due to his gallbladder and I would not be confident that his pain would resolve with a cholecystectomy. We discussed that a lower ejection fraction (like 10% compared to his previous 30%) may be more suggestive that improvement would be seen after surgery, but that I am hesitant to strongly recommend surgery with these results. Certainly, I would defer to the opinion of the surgeon.3. I would like to try a trial of ciprofloxacin to treat a possible occult infection.4. We discussed possibly using medication typically designed for Irritable Bowel Syndrome to help manage some of the symptoms if there is no response to Cipro.5. He is interested in a dietitian visit as well to discuss his recent significant weight gain and to help find some guidance for dietary management. Related to Abd Pain Generalized Hepatobiliary system imaging, incl gallbladder with pharm Related to RUQ Pain Hepatobiliary system imaging, incl gallbladder with pharm Related to RUQ Pain 1. He would be hospi talized for pain management and for further evaluation.2. I plan to schedule for an upper endoscopy and colonoscopy with biopsies for further evaluation of his symptoms.3. Information obtained from the above will help us guide in further management. 4. After the clinic visit, we did contact the [facility] Emergency Department and the patient was referred there. Related to RLQ Pain EGD Related to Diarr hea Colonoscopy Related to Diarr hea Assessments Type Assessment Date No Information Patient Care Teams Name Effective Dates (start - stop) Status Members No Information
--- OUTSIDE RECORDS SUMMARY | 2015-05-01 04:35 | XMS_ITS | Continuity of Care Document ---
Author Organization [facility] Address [address] [address] [place] [address] Phone Care Team Providers Care Pulley Maintainer Name Role Phone Eloisa LÓPEZ, Junior Unavailable [...] Diagnoses Date Provider Providers Copied on Encounter [facility] [address] [address], [place], [id number], tel:[phone] [facility] No Information 6 Eloisa Pacheco. [address], [id number], [place]. tel:[phone] Lb Cuenca MD. tel:[phone] Init Hosp-da E&m Mod Severity [facility] [address] [address], [place], [id number], [place] tel:[phone] [facility] No Information 6 Eloisa Pacheco. [address], [id number], [place]. tel:[phone] Offic/outpt E&m Estab Mod-hi 2 [facility], [address] [address], [place], [id number], [place] tel:[phone] [facility] GI Symptoms or Concerns (chief complaint) Abd Pain GeneralizedDi arrheaNausea And Vomiting 5 Eloisa Pacheco. [address] [facility], [facility] [address], [place], [place], [id number], [place]. tel:[phone] Lb Cuenca MD. tel:[phone] erring Provider: Referral Self, USE FOR SELF REFERRALS. [facility], [address] [address], [place], [id number], [place] tel:[phone] [facility] No Information 4 No Information [facility], [address] [address], [place], [id number], [place] tel:[phone] [facility] Abd Pain GeneralizedGe neralized abdominal pain 4 No Information bL Cuenca MD. tel:[phone] [facility], [address] [address], [place], [id number], [place] tel:[phone] [facility] Diarrhea 4 Tona LÓPEZ Chacorta. [address] [facility], [facility] [address], [place], [place], [id number], [place]. tel:[phone] Lb Cuenca MD. tel:[phone] erring Provider: Lb Romano, [address], [place], [address]. tel:[phone] Offic/outpt E&m Estab Low-mod [facility], [address] [address], [place], [id number], [place] tel:[phone] [facility] GI Symptoms or Concerns (chief complaint) DiarrheaAbd Pain Generalized 4 No Information Lb Cuenca MD. tel:[phone] cialist: Radha Saunders MD, [facility]0 [facility] [address], [place], [address]. tel:[phone] erring Provider: Referral Self, USE FOR SELF REFERRALS. [facility], [address] [address], [place], [id number], [place] tel:[phone] [facility] RUQ Pain Dec-0 6-201 4 Tona Whatley. [address] [place] [address], [facility] [address], [place], [id number], [place]. tel:[phone] Offic/outpt E&m Estab Mod-hi 2 [facility], [address] [address], [place], [id number], [place] tel:[phone] [facility] GI Symptoms or Concerns (chief complaint) RLQ PainDiarrhea Dec-0 1 4 Tona Whatley. [address] [place] [address], [id number], [place]. tel:[phone] Lb Cuenca MD. tel:[phone] erring Provider: Referral Self, USE FOR SELF REFERRALS. [facility], [address] [address], [place], [id number], [place] tel:[phone] [facility] No Information 1 4 Tona Whatley. [address] [place] [address], [place], [place], [id number], [place]. tel:[phone] Referring Provider: Lb Romano, [address], [place], [address]. tel:[phone] [facility], [address] [address], [place], [id number], [place] tel:[phone] [facility] RUQ Pain 2 7 4 No Information Offic/outpt E&m New Mod-hi [facility], [address] [address], [place], [id number], [place] tel:[phone] [facility] RUQ Pain July-0 8-201 4 No Information Referring Provider: Lb Romano, [address], [place], [address]. tel:[phone] Family History Family Member Type Diagnosis Age [...] Insurance type Covered democrat ID Cee powell(s) [place] Medical Assistance [id number] Social History Type Description Quantity Date Captured [...] last week and was briefly admitted to [facility] after that visit. There, he had [...] the clinic visit, we did contact the [facility] Emergency Department and the patient was referred there. Related to RLQ Pain EGD Related to Diarr hea Colonoscopy Related to Diarr hea Assessments Type Assessment Date No Information Patient Care Teams Name Effective Dates (start - stop) Status Members No Information
--- OUTSIDE RECORDS SUMMARY | 2024-09-29 06:05 | XMS_ITS | Encounter Summary ---
Author Organization [facility] Address [address] [place] [address] Care Team Providers Care Digital Associate Media Director Name Role Phone Wesly Smith MD Primary Care Provider [phone] Encounter Details Date Type Department Care Team (Latest Contact Info) Description 04/25/1998 Orders Only Javi Perez MD [address] [place] [address] Social History Tobacco Use Types Packs/Day Years Used Date Smoking Tobacco: Never Assessed Sex and Gender Information Value Date Recorded Sex Assigned at Not on file Legal Sex Male 3:27 AM CDT Gender Identity Not on file Sexual Orientation Not on file documented as of this encounter Plan of Treatment Not on file documented as of this encounter Visit Diagnoses Not on filedocumented in this encounter Care Teams Digital Associate Media Director Relationship Specialty Start Date End Date Wesly Smith MD [address] [place], [place] [id number] PCP - General Family Practice 08/03/20 documented as of this encounter
--- OUTSIDE RECORDS SUMMARY | 2024-09-29 06:05 | XMS_ITS | Encounter Summary ---
Author Organization [facility] Address [address] [place] [address] Care Team Providers Care Almond Cutting Machine Tender Name Role Phone Wesly Smith MD Primary Care Provider [phone] Encounter Details Date Type Department Care Team (Latest Contact Info) Description 05/31/1998 Office Visit Altaf Brown MD [facility] [address] [place], [place] [id number] Social History Tobacco Use Types Packs/Day Years Used Date Smoking Tobacco: Never Assessed Sex and Gender Information Value Date Recorded Sex Assigned at Not on file Legal Sex Male 3:27 AM CDT Gender Identity Not on file Sexual Orientation Not on file documented as of this encounter Progress Notes * Altaf Brown - 05/31/1998 12:00 AM CSTS: Fussiness. Cough. Congestion. Gio seemed uncomfortable for the last several days, sounding phlegmy when he breathes, has been pulling at his ears, not sleeping well at night. Mom talked to Dr. Patel who wanted us to rule out respiratory cause otherwise he might have to have endoscopy. O: Weight 21.6. temperature 99.6. HEENT: TMs partially obscured by wax, seemed to be red. Purulent drainage from the nose down the throat. Neck is normal. Chest is clear. A: Purulent rhinitis. Otitis. Earwax. P: Debrox for the earwax. Bactrim one teaspoon twice a day for two weeks. Come back in about two weeks or prn. cc: TH SERVICES MANAGER documented in this encounter Plan of Treatment Not on file documented as of this encounter Visit Diagnoses Not on filedocumented in this encounter Care Teams Almond Cutting Machine Tender Relationship Specialty Start Date End Date Wesly Smith MD [address] [facility] [place] [address] PCP - General Family Practice 08/03/20 documented as of this encounter
--- OUTSIDE RECORDS SUMMARY | 2024-09-29 06:05 | XMS_ITS | Clinical Summary ---
Author Organization [facility] Address [address] [place] [address] Care Team Providers Care Turn Down Attendant Name Role Phone [facility], [facility] Primary Care Provider Christy Gerene MD Unavailable EiCarlton stubbs MD Unavailable [phone] Sachi Howell Unavailable [phone] Allergies Active Allergy Reactions Criticality Noted Date Comments Seasonal Allergies 08/27/2014 Medications Levothyroxine Sodium (SYNTHROID PO) Take 150 mcg by mouth daily Active OMEPRAZOLE PO Take 20 mg by mouth 2 times daily (before meals) Active diphenoxylate-atr opine (LOMOTIL) 2.5-0.025 MG per tablet Take 1 tablet by mouth every 4 hours as needed for diarrhea Active RANITIDINE HCL PO Take 150 mg by mouth 2 times daily Active melatonin 3 MG tabletIndications :Mood disorder Take 2 tablets (6 mg) by mouth At Bedtime 60 tablet 0 09/02/19 15 Active OXcarbazepine (TRILEPTAL) 300 MG tabletIndications :Mood disorder Take 3 tablets (900 mg) by mouth 2 times daily 180 tablet 0 09/20/19 15 Active Lactobacillus Rhamnosus, GG, (CULTURELL) capsuleIndication s:Diarrhea Take 1 capsule by mouth 2 times daily 60 capsule 0 09/20/19 15 Active cloNIDine (CATAPRES) 0.1 MG tabletIndications :Attention deficit disorder with hyperactivity(314 .01) Take 1 tablet (0.1 mg) by mouth 2 times daily 60 tablet 0 10/08/19 15 Active FLUoxetine (PROZAC) 40 MG capsuleIndication s:Mood disorder Take 1 capsule (40 mg) by mouth daily 30 capsule 0 10/08/19 15 Active traZODone (DESYREL) 50 MG tabletIndications :Insomnia Take 1 tablet (50 mg) by mouth At Bedtime Takes 2-3 tablets for sleep 90 tablet 0 10/08/19 15 Active lithium (ESKALITH) 450 MG CR tabletIndications :Mood disorder Take 2 tablets (900 mg) by mouth 2 times daily 120 tablet 0 10/08/19 15 Active desmopressin (DDAVP) 0.1 MG tabletIndications :Enuresis Take 0.2mg at bedtime 60 tablet 0 10/08/19 15 Active ibuprofen (ADVIL,MOTRIN) 600 MG tablet Take 1 tablet (600 mg) by mouth every 8 hours as needed for moderate pain 30 tablet 0 03/29/19 16 Active oxyCODONE-acetami nophen (PERCOCET) 5-325 MG per tablet Take 1-2 tablets by mouth every 6 hours as needed for pain 15 tablet 0 03/29/19 16 Active fenofibrate (TRICOR) 145 MG tabletIndications :Hypertriglycerid emia Take 1 tablet (145 mg) by mouth daily. 90 tablet 3 12/30/19 24 Active fish oil-omega-3 fatty acids 1000 MG capsuleIndication s:Hypertriglyceri demia Take 2 capsules (2 g) by mouth 2 times daily. 100 capsule 3 12/30/19 24 Active hydrocortisone sodium succinate PF (SOLU-CORTEF) 100 mg/2 mL injectionIndicati ons:Adrenal insufficiency Dispense Act-O-Vial Inject once IM in case of adrenal crisis emergency 2 mL 3 01/12/20 Active syringe/needle, disp, 23G X 1 3 ML MISCIndications:A drenal insufficiency Use to draw up and inject solu cortef in emergency 3 each 5 01/12/20 24 Active levothyroxine (SYNTHROID/LEVOTH ROID) 25 MCG tabletIndications :Panhypopituitari sm Take 1 tablet (25 mcg) by mouth daily. To take this tablet in addition to your regular levothyroxine dose of 200 mcg together first thing in the morning and to wait for at least 30 minutes before you eat or drink. 90 tablet 3 01/22/20 24 Active levothyroxine (SYNTHROID/LEVOTH ROID) 200 MCG tabletIndications :Panhypopituitari sm Take 1 tablet (200 mcg) by mouth daily. To take this tablet in addition to the 25 mcg tablet of levothyroxine daily in the morning fasting before you eat or drink and to wait for at least 30 minutes. 90 tablet 3 01/22/20 24 Active Active Problems Patient Care Coordination No te Formatting of this note migh t be different from the original. 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 Rehospitalization should only be considered for acute changes in safety - would recommend use of Bridge or family instead of hospitalization. Patient does well with supportive, calm adults. If patient is hospitalized, needs to have intense search, as patient has previously smuggled phone on unit. Has intensive in-home services through [facility] [phone] Due to patient's size, he seems more aggressive, threatening then he really is - we have not observed any aggression/agitation on the inpatient unit or in day treatment Encounters Date Type Department Care Team Description 07/20/2024 Telephone [facility] Endocrinology [address] [address] Sachi Howell MBBS Clinic Care Coordination - Follow-up (Pt request to reschedule) 07/12/2024 MyC Medical Advice [facility] Endocrinology [address] [address] Judith Alvarado RN 07/07/2024 Orders Only [facility] Endocrinology [address] [address] Judith Alvarado RN Hypothyroidism (Primary Dx) 07/07/2024 MyC Medical Advice [facility] Endocrinology Clinic [address] [phone] Sachi Howell MBBS 06/30/2024 MyC Medical Advice [facility] Endocrinology Clinic [address] [phone] Sachi Howell MBBS from Last 3 Months Immunizations Immunization Administration Dates Next Due TDAP (Adacel,Boostrix) 04/05/2009 Family History Medical History Relation Comments Depression Father Depression Maternal Aunt Cardiomyopathy No family hx of Coronary Artery Disease No family hx of Hyperlipidemia No family hx of Relation Status Comments Father Maternal Aunt Social History Tobacco Use Types Packs/Day Years Used Date Smoking Tobacco: Former Cigarettes 2 5 0 03/17/2012 - 03/17/2017 Smokeless Tobacco: Current Chew Alcohol Use Standard Drinks/Week Comments Yes 0 (1 standard drink = 0.6 oz pur e alcohol) occasionally (monthly)) PHQ-2 Answer Date Recorded PHQ-2 Score 0 12/30/2023 Adolescent Education Answer Date Record ed Getting School Help Needed Not on file 12/30 Sex and Gender Information Value Date Recorded Sex Assigned at Not on file Legal Sex Male 3:42 AM DATA SCIENCE AND IOT MANAGER Gender Identity Not on file Sexual Orientation Not on file Last Filed Vital Signs Vital Sign Reading Time Taken Comments Blood Pressure 125/84 03/31/2024 8:07 AM DATA SCIENCE AND IOT MANAGER Pulse 75 03/31/2024 8:07 AM DATA SCIENCE AND IOT MANAGER Temperature 37.1 C (98.7 F) 03/31/2024 8:07 AM DATA SCIENCE AND IOT MANAGER Respiratory Rate 18 03/31/2024 8:07 AM DATA SCIENCE AND IOT MANAGER Oxygen Saturation 94% 03/31/2024 8:0 7 AM DATA SCIENCE AND IOT MANAGER Inhaled Oxygen Concentration - - Weight 128.8 kg (284 lb) 10/11/2021 8:3 8 AM CDT With out shoes Height 185.4 cm (6' 1) 10/11/2021 8:38 AM CDT Body Mass Index 37.47 10/11/2021 8:38 AM CDT Plan of Treatment Upcoming Encounters Date Type Department Care Team (Late st Contact Info) Description 11/16/2024 2:00 PM CDT Virtual Visit [facility] End[facility] [place] [address] [facility] [address] [place] [address] Sachi Howell MBBS [address] [facility] [address], [facility] [address] [place] [address] Health Maintenance Due Date Last Done Comments ADVANCE CARE PLANNING 1997 ANNUAL REVIEW OF HM ORDERS 1997 YEARLY PREVENTIVE VISIT 2000 HIV SCREENING 2012 HPV VACCINE (3 - Male 3-dose series) 08/25/2014 06/02/2014, 11/03/2012 HEPATITIS C SCREENING 10/24/2015 DTAP/TDAP/TD VACCINE (9 - Td or Tdap) 11/03/2019 11/02/2009, 11/02/2009, 04/05/2009, Additional history exists COVID-19 VACCINE ( season) 2023 PHQ-2 (once per calendar year) 2024 12/30/2023 INFLUENZA VACCINE (#1) 2024 9, 12/23/2012, 11/11/2011, Additional history exists LIPID 03/31/2025 03/31/2024, 09/14, 04/09/2023, Additional history exists TSH W/FREE T4 REFLEX 03/31/2025 03/31/2024, 01/14/2024, 01/09/2024, Additional history exists ZOSTER VACCINE (1 of 2) 10/24/2047 HEPATITIS B VACCINE Completed 04/25/1998, 04/25/1998, 1997, Additional history exists MENINGITIS VACCINE Completed 06/02/2014, 11/02/2009 PNEUMOCOCCAL VACCINE: PEDIATRICS (0 to 5 YEARS) AND AT-RISK PATIENTS (6 to 49 YEARS) Aged Out No longer eligible based on patient's age to complete this topic Procedures Procedure Name Priority Date/Time Associated Diagnosis Comments T4 FREE Routine 03/31/2024 8:57 AM DATA SCIENCE AND IOT MANAGER Panhypopituitarism LIPID REFLEX TO DIRECT LDL PANEL Routine 03/31/2024 8:57 AM DATA SCIENCE AND IOT MANAGER Hypertriglyceridemi a from Last 3 Months or Most Recently Relevant to Health Maintenance Results * T4 free (03/31/2024 8:57 AM DATA SCIENCE AND IOT MANAGER) Free T4 1.00 0.90 - 1.70 ng/dL 03/31/2024 9:37 AM DATA SCIENCE AND IOT MANAGER [facility] Blood STRUCTURE OF RIGHT UPPER LIMB / Unknown Venipuncture / Unknown 03/31/2024 8:57 AM DATA SCIENCE AND IOT MANAGER 03/31/2024 9:06 AM DATA SCIENCE AND IOT MANAGER us S[facility] - BLOOD ORDERABLES Final Re sult LABORATORY [facility] [address] [facility] (1st floor, no room number) [place] [address], [facility] * (ABNORMAL) Lipid panel reflex to direct LDL Fasting (03/31/2024 8:57 AM DATA SCIENCE AND IOT MANAGER) Cholesterol 162 <200 mg/dL 03/31/2024 12:28 PM DATA SCIENCE AND IOT MANAGER [facility] Triglycerides 323(H) <150 mg/dL 03/31/2024 12:28 PM DATA SCIENCE AND IOT MANAGER [facility] Direct Measure HDL 33(L) >=40 mg/dL 03/31/2024 12:28 PM DATA SCIENCE AND IOT MANAGER [facility] LDL Cholesterol Calculated 64 <100 mg/dL 03/31/2024 12:28 PM DATA SCIENCE AND IOT MANAGER [facility] Non HDL Cholesterol 129 <130 mg/dL 03/31/2024 12:28 PM DATA SCIENCE AND IOT MANAGER [facility] Patient Fasting > 8hrs? Yes 03/31/2024 12:28 PM DATA SCIENCE AND IOT MANAGER LABORATORY Blood STRUCTURE OF RIGHT UPPER LIMB / Unknown Venipuncture / Unknown 03/31/2024 8:57 AM DATA SCIENCE AND IOT MANAGER 03/31/2024 9:06 AM DATA SCIENCE AND IOT MANAGER Narrative [facility] - 03/31/2024 12:28 PM DATA SCIENCE AND IOT MANAGER Cholesterol Desirable: < 200 mg/dL Borderline High: 200 - 239 mg/dL High: >= 240 mg/dL Triglycerides Normal: < 150 mg/dL Borderline High: 150 - 199 mg/dL High: 200-499 mg/dL Very High: >= 500 mg/dL Direct Measure HDL Female: >= 50 mg/dL Male: >= 40 mg/dL LDL Cholesterol Desirable: < 100 mg/dL Above Desirable: 100 - 129 mg/dL Borderline High: 130 - 159 mg/dL High: 160 - 189 mg/dL Very High: >= 190 mg/dL Non HDL Cholesterol Desirable: < 130 mg/dL Above Desirable: 130 - 159 mg/dL Borderline High: 160 - 189 mg/dL High: 190 - 219 mg/dL Very High: >= 220 mg/dL us Sachi [facility] - BLOOD ORDERABLES Final Re sult LABORATORY [facility] [address] [facility] [address], [address] [place] [address], [facility] LABORATORY [facility] Acute Care Lab [address] [facility] Lab (1st floor, no room number) [place] [address], [facility] from Last 3 Months or Most Recently Relevant to Health Maintenance [place] Advance Directives For more information, please contact: [phone] * Full Code (Latest Code Status on File) Date Activated Date Inactivated Comments 08/27/2014 9:15 PM 09/05/2014 5:59 PM * Full Code Date Activated Date Inactivated Comments 07/27/2014 1:21 AM 07/31/2014 7:53 PM Care Teams Turn Down Attendant Relationship Specialty Start Date End Date [facility], [facility] [address] [place] [address] PCP - General 02/18/19 Christy Greene MD [address] [place] [address] Cardiovascular Disease 10/09/21 Carlton Bowers MD [address] [address] Psychiatry 10/10/21 Sachi Howell MBBS [address] [facility], [facility] [address] [place] [address] Assigned Endocrinology Provider 02/07/24
--- OUTSIDE RECORDS SUMMARY | 2024-09-29 06:05 | XMS_ITS | Encounter Summary ---
Author Organization [facility] Address [address] [place] [address] Care Team Providers Care Senior Design Engineer Name Role Phone Wesly Smith MD Primary Care Provider [phone] Encounter Details Date Type Department Care Team (Latest Contact Info) Description 02/03/1998 Office Visit Javi Perez MD [address] [place], [place] [address] Social History Tobacco Use Types Packs/Day Years Used Date Smoking Tobacco: Never Assessed Sex and Gender Information Value Date Recorded Sex Assigned at Not on file Legal Sex Male 3:27 AM CDT Gender Identity Not on file Sexual Orientation Not on file documented as of this encounter Progress Notes * Javi Perez - 02/03/1998 12:00 AM CSTS: 3 month-old infant boy who has a long medical history. A 2 stack of medical records is brought with him. Gio was hospitalized for 31 days as a with severe E-coli sepsis. He was on a ventilator for 7 days. Then he has been hospitalized two more times. The first time for difficulty breathing when he was given I.V. cefotaxime and the third time for gross blood in his stools. He had this care in [place] and the family moved back to [place] 1 weeks ago. Gio seems to have normal development. He has good head control in the upright position. He smiles and coos. He laughs out loud and squeals. He is not rolling front to back or back to front. His current medications are Prelone and he is on a taper from this steroid medication. Currently he is taking 1 ml. b.i.d. He is also on Zantac 150 mg. per 10 ml. He takes 0.7 ml. t.i.d. He is also on Nystatin for oral thrush but the thrush has not seemed to improve. Gio still has intermittent episodes of mid abdominal pain where he rolls up into a ball and begins to scream. This occurred during his episode of bloody stools. He has had no blood in the stool recently. He is on Pregestimil. The mother does have WIC. His symptoms are actually improving considerably. FAMILY HISTORY: His mother will be at home. They are staying with relatives while they are buying a home in [place] at present. The father Jamie works for [employer] on the [employer]. The family had lived for one year and two months in [place]. The paternal grandparents are Bryan and Francisco Lacy. Bryan was previously a nurse at this clinic with Dr. Ling Maat. O: Healthy appearing . TM's are clear. Eyes are bright and EOM intact. Mouth - there is wide spread white exudate on the buccal mucosa and inner aspect of the lips. Nodes negative. Neck supple. Lungs clear. Heart: no murmur. Abdomen entirely soft, no masses, no organomegaly. Skin is otherwise clear. Genitalia: normal male. Circumcision looks good. Neurologic: appropriate for age. A: Healthy with history of serious illness in the past. Now doing well. Oral thrush. P: Anticipate this infant will continue to improve. Etiology of blood in stool remains obscure to me. It certainly could have been related to the multiple antibiotics and his previous doctors felt that cow's milk allergy may be a factor. Today we treated the mouth with Gentian Arianna and Nystatin solution may also be used if thrush does not resolve completely. Continue Zantac 0.7 ml. t.i.d. RHM at 4 months. Finish off the prednisolone taper. Zantac also could be tapered or discontinued at the end of the next month. IN SUMMARY: HEALTHY WITH HX. SERIOUS ILLNESS IN PAST cc: VIORAL SERVICES TECH documented in this encounter Plan of Treatment Not on file documented as of this encounter Visit Diagnoses Not on filedocumented in this encounter Care Teams Senior Design Engineer Relationship Specialty Start Date End Date Wesly Smith MD [address] [place] [address] PCP - General Family Practice 08/03/20 documented as of this encounter
--- OUTSIDE RECORDS SUMMARY | 2024-09-29 06:05 | XMS_ITS | Encounter Summary ---
[facility] Address [address] [place] [address] Care Team Providers Care Flux Tube Attendant Name Role Phone Wesly Smith MD Primary Care Provider [phone] Encounter Details Date Type Department Care Team (Latest Contact Info) Description 04/05/1998 Office Visit Altaf Brown MD [facility] [address] [place], [place] [id number] Social History Tobacco Use Types Packs/Day Years Used Date Smoking Tobacco: Never Assessed Sex and Gender Information Value Date Recorded Sex Assigned at Not on file Legal Sex Male 3:27 AM CDT Gender Identity Not on file Sexual Orientation Not on file documented as of this encounter Progress Notes * Altaf Brown - 04/05/1998 12:00 AM CSTS: Hospital follow-up. Gio has a long history of hematuria, bowel problems and has had fussiness, vomiting, distention. He was hospitalized, followed by Dr. Leo, a special day class teacher. He was changed from Zantac to Prilosec but he would vomit that. Propulsid is being given in a dose of 1.5 cc four times a day, 1 mg per cc. He's still on Pregestimil. 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 He takes about 4 oz. every four hours of that. Mom has kept track of his vomiting and he has distention vomiting, not always right after a feeding. For instance, on the , 1 a.m., his last feeding having been 7 p.m., he threw up at 1:30 and then at 3, threw up on an empty stomach and then 8 a.m., 2 p.m. and later. They talked to Dr. Leo, he was changed from the Zantac to Propulsid, tried to keep on the Prilosec and he threw it up, very, very fussy on that. Sometimes he seems to choke on it, not always. O: WEIGHT: 18 lb. TEMP: 99.5. Happy, alert baby until I examine him and he screamed rather vigorously. He has dry skin with a suggestion of eczema. Abdomen slightly distended, slightly increased bowel sounds. Chest had some rhonchi to begin with and then cleared. TM's are normal. Nose and throat normal. A: Spitting up, distention. P: One thing I think they need to try is switching to a formula with less osmolar activity. I'm going to try him on ProSobee and mom will call me tomorrow. If he's not better on that, we'll try lowering the dose of the Propulsid from 1.5 cc to 0.8 cc four times a day. That actually was what printed on the bottle from Dr. Leo but over the phone he told them that based on the weight he should go to 1.5. His weight is about 18 lb, that's about 8 kilos and so at 2 kilos per dose that would be about 1.5 cc. We'll be in touch by phone. IN SUMMARY: SPITTING UP, DISTENTION cc: LEAF PRINTER documented in this encounter Plan of Treatment Not on file documented as of this encounter Visit Diagnoses Not on filedocumented in this encounter Care Teams Flux Tube Attendant Relationship Specialty Start Date End Date Wesly Smith MD [address] [place] [address] PCP - General Family Practice 08/03/20 documented as of this encounter
--- OUTSIDE RECORDS SUMMARY | 2024-09-29 06:05 | XMS_ITS | Encounter Summary ---
Author Organization [facility] Address [address] [place] [address] Care Team Providers Care Lamp Shade Assembler Name Role Phone Wesly Smith MD Primary Care Provider [phone] Encounter Details Date Type Department Care Team (Latest Contact Info) Description 03/13/1998 Orders Only Altaf Brown MD [facility] [address] [place] [address] Social History Tobacco Use Types Packs/Day Years [...] on filedocumented in this encounter Care Teams Lamp Shade Assembler Relationship Specialty Start Date End Date Wesly Smith MD [address] [place], [place] [id number] PCP - General Family Practice 08/03/20 documented as of this encounter
--- OUTSIDE RECORDS SUMMARY | 2024-09-29 06:05 | XMS_ITS | Encounter Summary ---
Author Organization [facility] Address [address] [place] [address] Care Team Providers Care Music Arranger Name Role Phone Wesly Smith MD Primary Care Provider [phone] Encounter Details Date Type Department Care Team (Latest Contact Info) Description 05/31/1998 Orders Only Altaf Brown MD [facility] [address] [place] [address] Social History Tobacco Use Types Packs/Day Years [...] on filedocumented in this encounter Care Teams Music Arranger Relationship Specialty Start Date End Date Wesly Smith MD [address] [place], [place] [id number] PCP - General Family Practice 08/03/20 documented as of this encounter
--- OUTSIDE RECORDS SUMMARY | 2024-09-29 06:05 | XMS_ITS | Encounter Summary ---
Author Organization [place] Address [address] [place] [address] Care Team Providers Care Special Procedures Technologist Name Role Phone Carlton Bowers MD Primary Care Provider [phone] System, Provider Not In Primary Care Provider Un available Clinic, [facility] Primary Care Provider Christy Greene MD Unavailable [phone] Carlton Bowers MD Unavailable [phone] Christy Greene MD Unavailable [phone] Sachi Howell Unavailable [phone] Encounter Details Date Type Department Care Team (Late st Contact Info) Description 01/16/2015 Orders Only [facility] Emergency Dept [address] [place] [address] Cheri Sweet Mood disorder; Behavioral disorder Social History Tobacco Use Types Packs/Day Years Used Date Smoking Tobacco: Never Alcohol Use Standard Drinks/Week Comments No 0 (1 standard drink = 0.6 oz pur e alcohol) Sex and Gender Information Value Date Recorded Sex Assigned at Not on file Legal Sex Male 3:42 AM CLINICAL NURSE MANAGER Gender Identity Not on file Sexual Orientation Not on file documented as of this encounter Plan of Treatment Upcoming Encounters Date Type Department Care Team (Late Contact Info) Description 11/16/2024 2:00 PM CDT Virtual Visit [facility] Endocrinology Clinic [address] [place] [address] Sachi Howell, [place] [address] [facility], [facility] [address] [place], [place] [address] documented as of this encounter Procedures Procedure Name Priority Date/Time Associated Diagnosis Comments LITHIUM LEVEL STAT 01/15/2015 12:33 PM CLINICAL NURSE MANAGER Mood disorder Behavioral disorder documented in this encounter Results * Barnum level (01/15/2015 12:33 PM CLINICAL NURSE MANAGER) Barnum Level 1.0 0.6 - 1.2 mmol/L [facility] Comment: [facility] 11.1.15 @ 8[facility] Blood specimen (specimen) 01/15/2015 12:33 PM CLINICAL NURSE MANAGER 01/16/2015 8:43 AM CLINICAL NURSE MANAGER us Nabil Bhat MD LAB - BLOOD ORDERABLES F inal Result [facility] [address] [place] [address], [facility] [phone] documented in this encounter Visit Diagnoses Diagnosis Mood disorder Unspecified episodic mood disorder Behavioral disorder Unspecified disturbance of conduct documented in this encounter Additional Health Concerns Infection Onset Date Last Indicated Resolved Time Rule Out COVID-19 08/19/2019 08/19/2019 08/19/2019 8:57 PM CDT documented as of this encounter Care Teams Special Procedures Technologist Relationship Specialty Start Date End Date Carlton Bowers MD [address] [address] PCP - General Psychiatry 09/15/14 04/14/16 System, Provider Not In PCP - General Clinic 04/15/16 11/14/16 [facility], [address] [address] PCP - General 02/18/19 Christy Greene MD [address] [place] [address] Cardiovascular Disease 10/09/21 Carlton Bowers MD [facility] [address] [place] [address] Psychiatry 10/10/21 Christy Greene MD [address] [place] [address] Assigned Heart and Vascular Provider 10/20/21 11/06/23 Sachi Howell MBBS [address] [place] [address], [facility] [address] [place], [place] [address] Assigned Endocrinology Provider 02/07/24 documented as of this encounter
--- OUTSIDE RECORDS SUMMARY | 2024-09-29 06:05 | XMS_ITS | Encounter Summary ---
Author Organization [place] Address [address] [place] [address] Care Team Providers Care Tracer Clerk Name Role Phone Clinic, [facility] Primary Care Provider Christy Greene MD Unavailable [phone] EiCarlton stubbs MD Unavailable [phone] Sachi Howell Unavailable [phone] Encounter Details Date Type Department Care Team (Late Contact Info) Description 07/12/2024 MyC Medical Advice [facility] Endocrinology Clinic [address] [address] Judith Alvarado, RN Social History Tobacco Use Types Packs/Day Years [...] on file 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 Gender Identity Not on file Sexual Orientation Not on file documented as of this encounter Plan of Treatment Upcoming Encounters Date Type Department Care Team (Late Contact Info) Description 11/16/2024 2:00 PM CDT Virtual Visit [facility] Endocrinology Clinic [place] [address] [facility] 3rd [place] [address] Sachi Howell MBBS 420 [facility] 101 [place], [place] [address] documented as of this encounter Visit Diagnoses Not on filedocumented in this encounter Care Teams Tracer Clerk Relationship Specialty Start Date End Date Clinic, [facility] [address] [place] [address] PCP - General 02/18/19 Christy Greene MD [address] [place], [place] [address] Cardiovascular Disease 10/09/21 Carlton Bowers MD [address] [id number] Psychiatry 10/10/21 Sachi Howell MBBS 420 [facility] 101 [place], [place] [id number] Assigned Endocrinology Provider 02/07/24 documented as of this encounter
--- OUTSIDE RECORDS SUMMARY | 2024-09-29 06:05 | XMS_ITS | Encounter Summary ---
Author Organization [place] Address [address] [place] [address]. [place] [address] Care Team Providers Care Manager Intensive Care Name Role Phone Clinic, [facility] Primary Care Provider Christy Greene MD Unavailable [phone] EiCarlton stubbs MD Unavailable [phone] Sachi Howell Unavailable [phone] Encounter Details Date Type Department Care Team (Late st Contact Info) Description 07/07/[address] 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 Endocrinology Clinic [place] [address] [facility] [address]rd [place] [phone] Sachi Howell MBBS [address] [address] documented as of this encounter Visit Diagnoses Not on filedocumented in this encounter Care Teams Manager Intensive Care Relationship Specialty Start Date End Date Clinic, [facility] [address] [place] [address] PCP - General 02/18/19 Christy Greene MD [address] [place] [address] Cardiovascular Disease 10/09/21 Carlton Bowers MD [address] [address] Psychiatry 10/10/21 Sachi Howell MBBS [address] [address] Assigned Endocrinology Provider 02/07/24 documented as of this encounter
--- OUTSIDE RECORDS SUMMARY | 2024-09-29 06:05 | XMS_ITS | Encounter Summary ---
Author Organization [place] Address [address] [place] [address]. [place] [address] Care Team Providers Care Cloth Shrinking Tester Name Role Phone Clinic, [facility] Primary Care Provider Christy Greene MD Unavailable [phone] EiCarlton stubbs MD Unavailable [phone] Sachi Howell Unavailable [phone] Encounter Details Date Type Department Care Team (Late st Contact Info) Description 06/30/2024 MyC Medical Advice [facility] Endocrinology Clinic [place] [address] [facility] 3rd [place] [address] Sachi Howell MBBS 420 [facility] 101 [place] [address] Social History Tobacco Use Types [...] on file 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 Gender Identity Not on file Sexual Orientation Not on file documented as of this encounter Plan of Treatment Upcoming Encounters Date Type Department Care Team (Late st Contact Info) Description 11/16/2024 2:00 PM CDT Virtual Visit [facility] Endocrinology Clinic [place] [address] [facility] [address]rd [place] [address] Sachi Howell MBBS [address] [address] documented as of this encounter Visit Diagnoses Not on filedocumented in this encounter Care Teams Cloth Shrinking Tester Relationship Specialty Start Date End Date Clinic, [facility] [address] [place] [address] PCP - General 02/18/19 Christy Greene MD [address] [place] [address] Cardiovascular Disease 10/09/21 Carlton Bowers MD [address] [address] Psychiatry 10/10/21 Sachi Howell MBBS [address] [address] Assigned Endocrinology Provider 02/07/24 documented as of this encounter
--- OUTSIDE RECORDS SUMMARY | 2024-09-29 06:05 | XMS_ITS | Encounter Summary ---
Author Organization [facility] Address [address] [place] [address] Care Team Providers Care Quality Control Inspector Heading Name Role Phone Wesly Smith MD Primary Care Provider [phone] Encounter Details Date Type Department Care Team (Late st Contact Info) Description 09/09/[address] [facility] Emergency [address] [place] [address] Marlin Estrella MD [address] [place] [address] AM EMERGENCY ROOM VISIT Social History Tobacco Use Types Packs/Day Years Used Date Smoking Tobacco: Never Assessed Sex and Gender Information Value Date Recorded Sex Assigned at Not on file Legal Sex Male 3:27 AM CDT Gender Identity Not on file Sexual Orientation Not on file documented as of this encounter Progress Notes * Marlin Estrella MD - 09/09/2011 12:00 AM CDT documented in this encounter Plan of Treatment Not on file documented as of this encounter Visit Diagnoses Not on filedocumented in this encounter Care Teams Quality Control Inspector Heading Relationship Specialty Start Date End Date Wesly Smith MD [address] [place] [address] PCP - General Family Practice 08/03/20 documented as of this encounter
--- OUTSIDE RECORDS SUMMARY | 2024-09-29 06:05 | XMS_ITS | Encounter Summary ---
Author Organization [facility] Address [address] [place] [address] Care Team Providers Care Bit Setter Name Role Phone Wesly Smith MD Primary Care Provider [phone] Encounter Details Date Type Department Care Team (Late st Contact Info) Description 08/28/2015 Orders Only [facility] [place] [address] [place] [address] Elton Potter MD [address] [facility] [place] [address] Social History Tobacco Use Types Packs/Day Years [...] on filedocumented in this encounter Care Teams Bit Setter Relationship Specialty Start Date End Date Wesly Smith MD [address] [place], [place] [id number] PCP - General Family Practice 08/03/20 documented as of this encounter
--- OUTSIDE RECORDS SUMMARY | 2024-09-29 06:05 | XMS_ITS | Encounter Summary ---
Author Organization [facility] Address [address] [place] [address] Care Team Providers Care Pier Hand Helper Name Role Phone Wesly Smith MD Primary Care Provider [phone] Encounter Details Date Type Department Care Team (Latest Contact Info) Description 03/13/1998 Office Visit Altaf Brown MD [facility] [address] [place], [place] [phone] Social History Tobacco Use Types Packs/Day Years Used Date Smoking Tobacco: Never Assessed Sex and Gender Information Value Date Recorded Sex Assigned at Not on file Legal Sex Male 3:27 AM CDT Gender Identity Not on file Sexual Orientation Not on file documented as of this encounter Progress Notes * Altaf Brown - 03/13/1998 12:00 AM CSTS: Cough, congestion, decreased appetite, rash. Gio has been on amoxicillin for about six days. Still having a fever of 100.5 to 101.5. Decreased appetite. Coughing. Continues for about three weeks, mostly at night. He had one diarrheal stool today. Decreased intake. He has a rash on the face, not usually prone to rashes. O: Weight 17 pounds 8 ounces. Temperature 99.6. HEENT - tympanic membranes are decreased mobility, not really red. There is nasal drainage. Throat normal. Neck normal. Chest - a few rhonchi bilaterally. There is a rash on the face that looks like eczema. Mom says he does not generally get that. A: Suspect Mycoplasmal with rash. P: Zithromax 100 mg per teaspoon, 4 cc now, then 2 cc daily for four days. Pediacare infant drops 1.2 to 1.6 cc every four to six hours. Tylenol. Steamer. Return in about 10-14 days or PRN if not getting better. cc: OR PROCUREMENT MANAGER documented in this encounter Plan of Treatment Not on file documented as of this encounter Visit Diagnoses Not on filedocumented in this encounter Care Teams Pier Hand Helper Relationship Specialty Start Date End Date Wesly Smith MD [address] [place] [address] PCP - General Family Practice 08/03/20 documented as of this encounter
--- OUTSIDE RECORDS SUMMARY | 2024-09-29 06:05 | XMS_ITS | Encounter Summary ---
Author Organization [facility] Address [address] [place] [address] Care Team Providers Care Aviation Ordnance Officer Name Role Phone Wesly Smith MD Primary Care Provider [phone] Encounter Details Date Type Department Care Team (Latest Contact Info) Description 04/05/1998 Orders Only Altaf Brown MD [facility] [address] [place] [address] Social History Tobacco Use Types Packs/Day Years [...] on filedocumented in this encounter Care Teams Aviation Ordnance Officer Relationship Specialty Start Date End Date Wesly Smith MD [address] [place], [place] [phone] PCP - General Family Practice 08/03/20 documented as of this encounter
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
--- OUTSIDE RECORDS SUMMARY | 2024-09-29 06:05 | XMS_ITS | Clinical Summary ---
Author Organization [facility] Address [address] [place] [address] Care Team Providers Care Electric Meter Installer Name Role Phone Wesly Smith MD Primary Care Provider [phone] Source Comments You are receiving this document as you are listed as the primary care provider,follow-up provider, or the patient has been referred to you for consultation.This is in compliance with the Medicare and[facility] Hospital[facility] EHR Incentive Program,which states Providers who transition their patient to another setting of careor provider of care or refers their patient to another provider of care shouldprovide summary care record for each transition of care or referral. [facility] Allerg[facility] No known active allergies Medications CARBAMAZEPINE OR Active RisperiDONE (RISPERDAL OR) Activ e Lisdexamfetamin e Dimesylate (VYVANSE OR) Active Levothyroxine Sodium (LEVOTHROID OR) Acti ve GUANFACINE HCL OR Active melatonin (MELATONIN) 3 MG Take 1 Tablet (3 mg) by mouth daily at bedtime. 2 Active loratadine (CLARITIN) 10 MG tablet Take 1 Tablet (10 mg) by mouth daily. 2 Active OXcarbazepine (TRILEPTAL) 600 MG tablet Take 1 Tablet (600 mg) by mouth two times a day. 2 Active ipratropium (ATROVENT) 0.06 % nasal solutionIndicat ions:Upper respiratory tract infection, unspecified type Place 2 Sprays into both nostrils 4 times a day. 15 mL 9 Active cloNIDine (CATAPRES) 0.1 MG tablet Take 1 Tablet (0.1 mg) by mouth. 5 Active desmopressin (DDAVP) 0.2 MG tablet See Instructions, 0.2 mg - 0.4 mg po qhs, for nocturnal enuresis. 3 month supply., # 180 TABLET, 1 Refill(s), Maintenance, Pharmacy: [place] [id number] [facility] 5 Active diphenoxylate-a tropine (LOMOTIL) 2.5-0.025 MG tablet Take 1 Tablet by mouth. Active FLUoxetine (PROZAC) 40 MG capsule Take 1 Capsule (40 mg) by mouth. 5 Active hydrocortisone (CORTEF) 10 MG tablet Take by mouth. 9 Active hydrocortisone sodium succinate PF (SOLU-CORTEF) 250 MG injection See Instructions, 125 mg = 1 ml IntraMuscular Q6H for fever, vomitting,diarrhe a,or fatigue or unconciuosness, # 2 Vial, 11 Refill(s), Maintenance, Pharmacy: [facility] [id number] [facility] 9 Active lithium carbonate ER (LITHOBID) 450 MG extended release tablet Take 2 Tablets (900 mg) by mouth. 5 Active traZODone (DESYREL) 50 MG tablet Take 1 Tablet (50 mg) by mouth. 5 Active Cholecalciferol (VITAMIN D3) 50 MCG (2000 UT) Take 1 Capsule by mouth daily. 4 Active fenofibrate (TRICOR) 145 MG tablet Take 1 Tablet (145 mg) by mouth daily. Active lurasidone (LATUDA) 60 MG tablet Take 1 Tablet (60 mg) by mouth daily. 4 Active Sunset-3 Fatty Acids (FISH OIL) 1000 MG capsule Take 2 Capsules (2,000 mg) by mouth. 4 Active omeprazole (PRILOSEC) 20 MG capsule Take 1 Capsule (20 mg) by mouth. 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 Croup 11/11/2011 Unequal leg length (acquired) 11/11/2011 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 11/11/2011 Overview (11/06/2016): partial complex seizures Septicemia of 11/11/2011 Overview (11/06/2016): E.coli sepsis S/P tonsillectomy and adenoidectomy 11/11/2011 Overview (11/06/2016): S/P tonsillectomy and adenoidectomy 2000 Status post pyloromyotomy, follow-up exam 2011 Overview (11/06/2016): Status post pyloromyotomy 1998 Hx of tympanostomy tubes 11/11/2011 Overview (11/06/2016): PE tubes 2000 Hx of flexible sigmoidoscopy 11/11/2011 Overview (11/06/2016): EGD 4/99 w/ pyloric dilation, flexible sigmoidoscopy Broken femur 11/11/2011 Overview (11/06/2016): Broken femur 07/20 Closed head injury 11/11/2011 Overview (11/06/2016): Closed head injury 07/20 Fracture of clavicular shaft, left, closed 11/10 Overview (11/06/2016): Fracture of clavicular shaft, left 07/20 Congenital hypertrophic pyloric stenosis 012 Psychiatric hospitalization 11/11/2011 Overview (11/06/2016): Psychiatric hospitalization-for anger issues Routine child health exam 11/11/2011 Immunizations Immunization Administration Dates Next Due DTP-Hib (Tetramune) 03/06/1998,1997 DTaP 09/07/2002, 0,04/25/1998,04/25/1998 ,03/06/1998,1997 Flu Vac Preserv Free (3+yrs) 11/11/2011,12/04/19 11,12/14/2009,12/29/2007 HepA Ped/Adol (1-18 yrs) 12/03/2010,11/02/2009 HepB Ped/Adol (0-18 yrs) 04/25/1998,11/1997,1997,1997 ,1997 Hib, Unspecified Formulation 10/24/1998,04/25/18 99,03/06/1998,1997 Hib/HBV 04/25/1998 IPV (Polio) 09/07/2002,04/25/1998,03/06/1998 ,1997 MCV4 (Menactra) 11/02/2009 MMR 09/07/2002,10/24/1998 OPV, Trivalent (Orimune or tOPV) 04/25/1998,02/15,1997 TDAP (BOOSTRIX) 11/02/2009 Varicella 11/02/2009,10/24/1998 Social History Tobacco Use Types Packs/Day Years Used Date Smoking Tobacco: Never Smokeless Tobacco: Current Chew Sex and Gender Information Value Date Recorded Sex Assigned at Not on file Legal Sex Male 3:27 AM CDT Gender Identity Not on file Sexual Orientation Not on file Last Filed Vital Signs Vital Sign Reading Time Taken Comments Blood Pressure 129/71 06/07/2018 4:14 PM CDT Pulse 76 06/07/2018 4:14 PM CDT Temperature 36.6 C (97.9 F) 01/14/2024 9:38 AM CDT Respiratory Rate 16 06/07/2018 4:14 PM CDT Oxygen Saturation 98% 06/07/2018 4:14 PM CDT Inhaled Oxygen Concentration - - Weight 133.8 kg (295 lb) 01/14/2024 9:38 AM CDT Height 188 cm (6' 2) 01/14/2024 9:38 AM CDT Body Mass Index 37.88 01/14/2024 9:38 AM CDT Plan of Treatment Health Maintenance Due Date Last Done Comments Hep C Screening (Preventive Services) 1997 Asthma ACT (score of 20 or higher) 2001 HIV Screening (Preventive Services) 2013 HPV Vaccine (3 - Male 3-dose series) 08/25/2014 06/02/2014, 11/03/2012 Adult Preventive Visit 10/24/2015 Pneumococcal Vaccine (1 of 2 - PCV) 2016 DTaP/Tdap/Td Vaccine (8 - Tdap) 11/03/2019 11/02/2009, 04/05/2009, 09/07/2002, Additional history exists COVID-19 Vaccine (1 - season) 2023 Influenza Vaccine (#1) 2024 9, 12/17/2013, 12/23/2012, Additional history exists Zoster/Shingles Vaccine (1 of 2) 10/24/2047 HepB Vaccine Completed 04/25/1998, 11/1998, 1997, Additional history exists Hib Vaccine Completed 10/24/1998, 11/1998, 04/25/1998, Additional history exists IPV (Polio) Vaccine Completed 09/07/2002, 04/25/1998, 04/25/1998, Additional history exists Varicella Vaccine Completed 11/02/2009, 10/24/1998 HepA Vaccine Completed 12/03/2010, 11/02/2009 MCV4 Vaccine Completed 06/02/2014, 11/02/2009 Meningococcal B Vaccine Aged Out No l onger eligible based on patient's age to complete this topic Insurance [id number] Care Teams Electric Meter Installer Relationship Specialty Start Date End Date Wesly Smith MD [address] [place] [address] PCP - General Family Practice 08/03/20
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
--- OUTSIDE RECORDS SUMMARY | 2024-09-29 06:06 | XMS_ITS | Encounter Summary ---
Author Organization [facility] Address [address] [place] [address] Care Team Providers Care Roper Operator Name Role Phone Carlton Bowers MD Primary Care Provider [phone] Carlton Bowers MD Primary Care Provider [phone] System, Provider Not In Primary Care Provider Un available Clinic, [facility] Primary Care Provider Christy Greene MD Unavailable [phone] Carlton Bowers MD Unavailable [phone] Christy Greene MD Unavailable [phone] Sachi Howell Unavailable [phone] Encounter Details Date Type Department Care Team (Late st Contact Info) Description 09/07/2014 BEH Treatment Plan [facility] [address] [address] Shaylee Tello MD [address] [facility], [address] [place] [address] Insomnia (Primary Dx); Attention deficit disorder with hyperactivity(314.0 1); Mood disorder; Enuresis Social History Tobacco Use Types Packs/Day Years Used Date Smoking Tobacco: Never Alcohol Use Standard Drinks/Week Comments No 0 (1 standard drink = 0.6 oz pur e alcohol) Sex and Gender Information Value Date Recorded Sex Assigned at Not on file 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 Gender Identity Not on file Sexual Orientation Not on file documented as of this encounter Plan of Treatment Upcoming Encounters Date Type Department Care Team (Late st Contact Info) Description 11/16/2024 2:00 PM CDT Virtual Visit [facility] Endocrinology Clinic [place] [address] [facility] 3rd [place] [address] Sachi Howell MBBS [address] [facility] [address] [place], [place] [address] documented as of this encounter Visit Diagnoses Diagnosis Insomnia- Primary Insomnia, unspecified Attention deficit disorder with hyperactivity(314.01) Attention deficit disorder with hyperactivity Mood disorder Unspecified episodic mood disorder Enuresis documented in this encounter Additional Health Concerns Infection Onset Date Last Indicated Resolved Time Rule Out COVID-19 08/19/2019 08/19/2019 08/19/2019 8:57 PM CDT documented as of this encounter Care Teams Roper Operator Relationship Specialty Start Date End Date Carlton Bowers MD [address] [address] PCP - General Psychiatry 07/27/14 09/14/14 Carlton Bowers MD [address] [address] PCP - General Psychiatry 09/15/14 04/14/16 System, Provider Not In PCP - General Clinic 04/15/16 11/14/16 [facility], [address] [address] PCP - General 02/18/19 Christy Greene MD [address] [place] [address] Cardiovascular Disease 10/09/21 Carlton Bowers MD [address] [place] [address] Psychiatry 10/10/21 Christy Greene MD [address] [place] [address] Assigned Heart and Vascular Provider 10/20/21 11/06/23 Sachi Howell MBBS [address] [facility], [facility] [address] [place], [place] [address] Assigned Endocrinology Provider 02/07/24 documented as of this encounter
--- OUTSIDE RECORDS SUMMARY | 2024-09-29 06:06 | XMS_ITS | Encounter Summary ---
Author Organization [facility] Address [address] [place] [address] Care Team Providers Care Stations Superintendent Name Role Phone Clinic, [facility] Primary Care Provider Christy Greene MD Unavailable [phone] Carlton Bowers MD Unavailable [phone] Christy Greene MD Unavailable [phone] Sachi Howell Unavailable [phone] Encounter Details Date Type Department Care Team (Late st Contact Info) Description 03/23/2020 External Order Results [facility] [address] [place] [address] Outside, Provider Social History Tobacco Use Types Packs/Day Years Used Date Smoking Tobacco: Never Alcohol Use Standard Drinks/Week Comments No 0 (1 standard drink = 0.6 oz pur e alcohol) Sex and Gender Information Value Date Recorded Sex Assigned at Not on file 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 Gender Identity Not on file Sexual Orientation Not on file documented as of this encounter Plan of Treatment Upcoming Encounters Date Type Department Care Team (Late st Contact Info) Description 11/16/2024 2:00 PM CDT Virtual Visit [facility] Endocrinology Clinic [place] [address] [facility] 3rd [place] [address] Sachi Howell MBBS [address] [facility] [address] [place], [place] [address] documented as of this encounter Procedures Procedure Name Priority Date/Time Associated Diagnosis Comments CBC WITH PLATELETS & DIFFERENTIAL Routine 03/23/2020 8:10 AM BULLET ASSEMBLY PRESS OPERATOR EXTERNAL LAB RESULTS Routine 03/23/2020 8:10 AM BULLET ASSEMBLY PRESS OPERATOR HEMOGLOBIN A1C Routine 03/23/2020 8:10 AM BULLET ASSEMBLY PRESS OPERATOR documented in this encounter Results * External Lab Results (03/23/2020 8:10 AM BULLET ASSEMBLY PRESS OPERATOR) Scan Lab Results (External) See Scanned Report NON-INTERFACE D (ONBASE SCANS) Comment:[place] 03/23/2020 8:10 AM BULLET ASSEMBLY PRESS OPERATOR Narrative [facility] - 10/10/2021 12:47 PM CDT Verified by Kylee Lai on 10/10/2021. Wesly Smith LABORATORY Edited Resul t - Final Performing Organization Address City/[facility]/ZIP Co de Phone Number [facility] NON-INTERFACED (ONBASE SCANS) * Hemoglobin A1c (03/23/2020 8:10 AM BULLET ASSEMBLY PRESS OPERATOR) Hemoglobin A1C (External) 4.9 0 - 5.6 % NON-INTERFACED (ONBASE SCANS) Blood 03/23/2020 8:10 AM BULLET ASSEMBLY PRESS OPERATOR Narrative [facility] - 10/10/2021 12:36 PM CDT Verified by Kylee Lai on 10/10/2021. Wesly Smith LAB - BLOOD ORDERABLES Edite d Result - Final [facility] NON-INTERFACED (ONBASE SCANS) * CBC with Platelets & Differential (03/23/2020 8:10 AM BULLET ASSEMBLY PRESS OPERATOR) WBC Count (External) 9.7 4.5 - 11.0 K/uL NON-INTERFACED (ONBASE SCANS) RBC Count (External) 5.13 4.30 - 52.90 M/UL NON-INTERFACED (ONBASE SCANS) Hemoglobin (External) 14.9 13.5 - 17.5 GM/DL NON-INTERFACED (ONBASE SCANS) Hematocrit (External) 45.9 37 - 53 % NON-INTERFACED (ONBASE SCANS) MCV (External) 90 80 - 100 FL NON-INTERFACED (ONBASE SCANS) MCH (External) 29 26 - 34 PG NON- INTERFACED (ONBASE SCANS) MCHC (External) 33 32 - 36 g/dL NON-INTERFACED (ONBASE SCANS) Platelet Count (External) 312 140 - 440 K/UL NON-INTERFACED (ONBASE SCANS) % Neutrophils (External) 66.0 42 - 72 % NON-INTERFACED (ONBASE SCANS) % Lymphocytes (External) 22.2 20 - 44 % NON-INTERFACED (ONBASE SCANS) % Monocytes (External) 9.0 0 - 11 % NON-INTERFACED (ONBASE SCANS) % Eosinophils (External) 2.3 0 - 7 % NON-INTERFACED (ONBASE SCANS) % Basophils (External) 0.5 0.0 - 3.0 % NON-INTERFACED (ONBASE SCANS) Absolute Neutrophils (External) 6.4 1.7 - 7.0 K/UL NON-INTERFACED (ONBASE SCANS) Absolute Lymphocytes (External) 2.2 0.9 - 2.9 K/UL NON-INTERFACED (ONBASE SCANS) Absolute Monocytes (External) 0.9 0.0 - 0.9 K/UL NON-INTERFACED (ONBASE SCANS) Absolute Eosinophils (External) 0.2 0.0 - 0.5 K/UL NON-INTERFACED (ONBASE SCANS) Absolute Basophils (External) 0.1 0.0 - 0.3 K/UL NON-INTERFACED (ONBASE SCANS) Blood 03/23/2020 8:10 AM BULLET ASSEMBLY PRESS OPERATOR Narrative [facility] - 10/10/2021 12:36 PM CDT Verified by Kylee Lai on 10/10/2021. Wesly Smith LAB - BLOOD ORDERABLES Edite d Result - Final [facility] NON-INTERFACED (ONBASE SCANS) documented in this encounter Visit Diagnoses Not on filedocumented in this encounter Care Teams Stations Superintendent Relationship Specialty Start Date End Date [facility], [address] [address] PCP - General 02/18/19 Christy Greene MD [address] [place] [id number] Cardiovascular Disease 10/09/21 Carlton Bowers MD [address] [id number] Psychiatry 10/10/21 Christy Greene MD [address] [place] [address] [phone] Assigned Heart and Vascular Provider 10/20/21 11/06/23 Sachi Howell MBBS [address] [place] [address], [address] [id number] Assigned Endocrinology Provider 02/07/24 documented as of this encounter
--- OUTSIDE RECORDS SUMMARY | 2024-09-29 06:06 | XMS_ITS | Clinical Summary ---
Author Organization [facility] Address [address] [place] [address] Care Team Providers Care Senior User Experience Architect Name Role Phone Nonstaff, Doctor Primary Care Provider Unavailab Sharri Alberts Unavailable Sharri Simmons [facility] Unavailable + Allergies No known active allergies Medications GUANFACINE HCL (TENEX ORAL) Take by mouth 2 times daily. One in the am and one at 3pm Active desmopressin (DDAVP) 0.2 mg tablet Take 0.2 mg by mouth at bedtime. 1 or 2 tablets at bedtime Active MOMETASONE FUROATE (NASONEX NASL) Inhale in the nostril(s). 1 - 2 sprays Daily as needed Active medication order composer Viance 50 mg one cap daily Active loratadine (CLARITIN) 10 mg tablet Take 10 mg by mouth once daily. Active levothyroxine (SYNTHROID) 150 mcg tablet Take 150 mcg by mouth once daily. Active cloNIDine HCl (CATAPRES) 0.1 mg tablet Take 0.1 mg by mouth 2 times daily. Active traZODone (DESYREL) 150 mg tablet Take 150 mg by mouth at bedtime. Active lithium carbonate (ESKALITH-CR) 450 mg Controlled-Rele ase tablet Take 900 mg by mouth 2 times daily. Active cefuroxime axetil (CEFTIN) 250 mg tablet Take 250 mg by mouth 2 times daily. Active rx omeprazole (PRILOSEC) 20 mg capsule (ED DC MED) Take 20 mg by mouth 2 times daily. Active FLUoxetine (PROZAC) 40 mg capsule Take 40 mg by mouth once daily. Active OXcarbazepine (TRILEPTAL) 300 mg tablet Take 300 mg by mouth 2 times daily. 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/23/2007 Social History Tobacco Use Types Packs/Day Years Used Date Smoking Tobacco: Never Comments: Alcohol Use Standard Drinks/Week Comments Not Asked 0 (1 standard drink = 0.6 oz pur e alcohol) Sex and Gender Information Value Date Recorded Sex Assigned at Not on file Legal Sex Male 6:26 AM EXECUTIVE RECEPTIONIST Gender Identity Not on file Sexual Orientation Not on file Obstetrics History Last Filed Vital Signs Vital Sign Reading Time Taken Comments Blood Pressure 111/65 08/22/2014 2:41 PM CDT Pulse 68 08/22/2014 2:41 PM CDT Temperature 36.7 C (98.1 F) 08/22/2014 2:41 PM CDT Respiratory Rate 18 08/22/2014 2:41 PM CDT Oxygen Saturation 96% 08/22/2014 2:41 PM CDT Inhaled Oxygen Concentration - - Weight 117.9 kg (260 lb) 08/22/2014 2:24 PM CDT Height 185.4 cm (6' 1) 08/22/2014 2:24 PM CDT Body Mass Index 34.3 08/22/2014 2:24 PM CDT Plan of Treatment Health Maintenance Due Date Last Done Comments Tetanus booster 2008 Depression screening for age 12+ 2009 HIV for age 15-65 2012 HPV series for age 9-26 (1 - Male 3-dose series) 2012 BMI (ht and wt on same day) for age 18+ 10/24/2015 Hepatitis C screening for ag e 18-79 10/24/2015 Hepatitis B series for 19+ ( 1 of 3 - 19+ 3-dose series) 2016 COVID-19 vaccine series ( - 2023- season) 2023 Influenza Vaccine (#1) 2024 Pneumococcal series for age 6-49 Aged Out No longer eligible based on patient's age to complete this topic Insurance [place] [employer] [id number] [address] [id number] [place] [address] Care Teams Senior User Experience Architect Relationship Specialty Start Date End Date Nonstaff, Doctor NON STAFF DOCTOR PCP - General 08/22/14 Sharri Fernandez [address] [place], [place] [address] Roll Carrier 12/22/14 Sharri Simmons, [facility] [address] [place], [place] [phone] Behavior Professional 04/09/17 Paxton Scarlet [address] [place] [address] Carton Filler 11/21/15 Emergency contact/ Guardian- Bianca Gonzalez [address] [place] [address] 01/26/15 Momo Gonzalez [address] [place] [address] only mother is guardian no fax 04/07/15 [facility] [address] [place] [address] 10/31/16
--- OUTSIDE RECORDS SUMMARY | 2024-09-29 06:06 | XMS_ITS | Encounter Summary ---
Author Organization [facility] Address [address] [place] [address] Care Team Providers Care Vocational Training Director Name Role Phone Clinic, [facility] Primary Care Provider Carlton Bowers MD Primary Care Provider [phone] Carlton Bowers MD Primary Care Provider [phone] System, Provider Not In Primary Care Provider Un available [facility], [facility] Primary Care Provider Christy Greene MD Unavailable Carlton Bowers MD Unavailable [phone] Christy Greene MD Unavailable Sachi Howell [facility] Unavailable [phone] Encounter Details Date Type Department Care Team (Late st Contact Info) Description 06/10/2014 Orders Only [facility] [address] [place] [address] Carlton Bowers MD [facility] [address] [place] [address] Mood disorder (Primary Dx); Mood disorder as late effect of traumatic brain injury Social History Tobacco Use Types Packs/Day Years Used Date Smoking Tobacco: Never Alcohol Use Standard Drinks/Week Comments No 0 (1 standard drink = 0.6 oz pur e alcohol) Sex and Gender Information Value Date Recorded Sex Assigned at Not on file 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 Gender Identity Not on file Sexual Orientation Not on file documented as of this encounter Plan of Treatment Upcoming Encounters Date Type Department Care Team (Late st Contact Info) Description 11/16/2024 2:00 PM CDT Virtual Visit [facility] Endocrinology Clinic [place] [address] [facility] 3rd [place] [address] Sachi Howell, [facility] [address] [facility], [facility] [address] [place] [address] documented as of this encounter Results * Jarrell level (06/13/2014 9:30 AM CDT) Jarrell Level 0.8 0.6 - 1.2 mmol/L [facility] Comment: Effective 10/13/2013, the reference range for this assay has changed to reflect new instrumentation/methodology. Blood specimen (specimen) 06/13/2014 9:30 AM CDT 06/13/2014 9:37 AM CDT us Carlton Bowers MD LAB - BLOOD ORDERABLES Final R esult Performing Organization Address City/[facility]/ZIP Co de Phone Number [facility] [address] [place] [address] * ALT (06/13/2014 9:30 AM CDT) ALT 44 0 - 50 U/L [facility] Blood specimen (specimen) 06/13/2014 9:30 AM CDT 06/13/2014 9:37 AM CDT us Carlton Bowers MD LAB - BLOOD ORDERABLES Final R esult Performing Organization Address City/[facility]/ZIP Co de Phone Number [facility] [address] [address] * (ABNORMAL) Lipid Profile (Chol, Trig, HDL, LDL calc) (06/13/2014 9:30 AM CDT) Cholesterol 104 <170 mg/dL [facility] Comment: LDL Cholesterol is the primary guide to therapy. The NCEP recommends further evaluation of: patients with cholesterol greater than 200 mg/dL if additional risk factors are present, cholesterol greater than 240 mg/dL, triglycerides greater than 150 mg/dL, or HDL less than 40 mg/dL. Triglycerides 343(H) 0 - 150 mg/dL [facility] HDL Cholesterol 27(L) >45 mg/dL [facility] LDL Cholesterol Calculated 8 0 - 129 mg/dL [facility] Comment: LDL Cholesterol is the primary guide to therapy: LDL-cholesterol goal in high risk patients is <100 mg/dL and in very high risk patients is <70 mg/dL. VLDL-Cholesterol 69(H) 0 - 30 mg/dL [facility] Cholesterol/HDL Ratio 3.9 0.0 - 5.0 [facility] Blood specimen (specimen) 06/13/2014 9:30 AM CDT 06/13/2014 9:37 AM CDT us Carlton Bowers MD LAB - BLOOD ORDERABLES Final R esult [facility] [address] [place] [address] documented in this encounter Visit Diagnoses Diagnosis Mood disorder- Primary Unspecified episodic mood disorder Mood disorder as late effect of traumatic brain injury Unspecified episodic mood disorder documented in this encounter Additional Health Concerns Infection Onset Date Last Indicated Resolved Time Rule Out COVID-19 08/19/2019 08/19/2019 08/19/2019 8:57 PM CDT documented as of this encounter Care Teams Vocational Training Director Relationship Specialty Start Date End Date Clinic, [address] [address] PCP - General 07/26/14 07/26/14 Carlton Bowers MD [address] [address] PCP - General Psychiatry 07/27/14 09/14/14 Carlton Bowers MD [facility] [address] [place] [address] PCP - General Psychiatry 09/15/14 04/14/16 System, Provider Not In PCP - General Clinic 04/15/16 11/14/16 [facility], [address] [address] PCP - General 02/18/19 Christy Greene MD [address] [place] [address] Cardiovascular Disease 10/09/21 Carlton Bowers MD [address] [address] Psychiatry 10/10/21 Christy Greene MD [address] [place] [address] Assigned Heart and Vascular Provider 10/20/21 11/06/23 Sachi Howell MBBS [address] [place] [address], [address] [id number] Assigned Endocrinology Provider 02/07/24 documented as of this encounter
--- NOTE | 2024-09-29 06:07 | ED.GENADULT ---
HPI - General Adult General Time Seen by Provider: 06:07 Date Seen: 09/29/24 Chief complaint: Extremity Pain/Injury, Lower Stated complaint: left foot pain Time Seen by Provider: 09/29/24 06:06 Source: patient, RN notes reviewed and old records reviewed Mode of arrival: ambulatory Limitations: no limitations History of Present Illness HPI narrative: 28-year-old male who comes in today with left foot pain. Patient says he dropped sign on his left foot 2 weeks ago, continue to have pain and so decided to come to the emergency room. He says he has some numbness on the top of the foot as well. He has been taking ibuprofen for this. He will ambulate. Related Data Home Medications ?Medication ?Instructions ?Recorded ?Confirmed oxcarbazepine 300 mg tablet 300 mg PO BID 10/11/21 04/16/24 clonidine HCl 0.1 mg tablet 0.1 mg PO TID 03/29/22 04/16/24 fluoxetine 40 mg capsule 40 mg PO DAILY 03/29/22 04/16/24 trazodone 150 mg tablet 150 mg PO QDAY 03/29/22 04/16/24 desmopressin 0.2 mg tablet 0.2 - 0.4 mg PO QPM 11/04/22 04/16/24 lithium carbonate 450 mg 900 mg PO BID 11/04/22 04/16/24 tablet,extended release lurasidone 20 mg tablet mg PO 04/22/23 04/16/24 naproxen sodium 220 mg capsule 440 mg PO QDAY 04/22/23 04/16/24 (Aleve) Previous Rx's ?Medication ?Instructions ?Recorded levothyroxine 200 mcg tablet 200 mcg PO DAILY #60 tabs 11/20/23 hydrocodone 5 mg-acetaminophen 325 1 tab PO Q4-6H PRN pain #30 tabs 04/20/24 mg tablet Allergies Allergy/AdvReac Type Severity Reaction Status Date / Time No Known Allergies Allergy Verified 04/16/24 13:39 [facility] Medical History Excessive anger ?R45.4 - Irritability and anger (ICD-10) Pyloric stenosis (02/17/12) ?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) Left calcaneal fracture ?S92.002A - Unspecified fracture of left calcaneus, initial encounter for closed fracture (ICD-10) 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) ?S06.9X9S - Unspecified intracranial injury with loss of consciousness of unspecified duration, sequela (ICD-10) Asthma (02/17/12) ?J45.909 - Unspecified asthma, uncomplicated (ICD-10) Surgical History History of tympanostomy tube placement ?Z96.22 - Myringotomy tube(s) status (ICD-10) History of tonsillectomy ?Z90.89 - Acquired absence of other organs (ICD-10) History of cholecystectomy ?Z90.49 - Acquired absence of other specified parts of digestive tract (ICD-10) Family History Mother Asthma Von Willebrand disease Sister Asthma Von Willebrand disease Maternal Grandfather Type 1 diabetes mellitus Father Sleep apnea Social History Narrative: Lives with family. Primarily lives w/dad; parents in 2014 Non-smoker Smoking Status: Current every day smoker What tobacco products do you use: cigarettes Do you use any of these nicotine containing products: Smokeless Tobacco Second hand tobacco smoke exposure: No How often do you have a drink containing alcohol: 2-4 times a month How often do you have six or more drinks on one occasion: Never AUDIT-C Alcohol total score: 2 Non-prescribed substance use: denies use service: No Exam Narrative: Exam Narrative: General: well nourished , NAD Head: Atraumatic and normocephalic ENT: External ears and external nose are normal Eyes: Conjunctiva clear, pupils are equal reactive, external ocular motions are intact Neck: Full spontaneous range of motion of the neck Lungs: No respiratory distress Musculoskeletal: Mild tenderness at the base of the 5th metatarsal as well as on the dorsum of the foot. No redness or swelling. No joint effusions, no pain with passive movement. No tenderness or pain of the ankle. Neurologic: No gross focal neurologic deficits Skin: No rashes Psych: Mood and affect are appropriate Const: Vital Signs, click to edit/add: Vital Signs - 24 hr 09/29/24 06:25 Temperature 98 F Pulse Rate [Pulse Oximeter] 81 Respiratory Rate 16 Blood Pressure [Le ft Upper Arm] 142/91 H Pulse Oximetry 94 Oxygen Delivery Me thod Room Air Course Course ED Course: Reviewed most recent emergency department visit from December 2023 when patient was seen for left knee injury, negative x-rays at that time and patient was discharged. Patient presents today with left foot injury, says he dropped a sign on his left foot 2 weeks ago and is still having pain so came to the emergency department. He is able ambulate. On exam he some tenderness at the base of the 5th metatarsal as well as the top of the foot. We discussed that at this point if there was a broken bone would not do anything about it. Patient stated understanding of this but still would like an x-ray. Reevaluation(s) Time of Reevaluation #1: 06:37 Reevaluation #1: X-ray of the left foot and panel interpreted by me negative for acute findings. If radiology interpretation agrees, patient can be discharged with outpatient follow-up as needed. Vital Signs Vital signs: Initial Vital Signs Temperature 98 F 09/29/24 06:25 Temperature Source Temporal Artery Scan 09/29/24 06:25 Pulse Rate 81 09/29/24 06:25 Respiratory Rate 16 09/29/24 06:25 Blood Pressure 142/91 H 09/29/24 06:25 Blood Pressure Mean 108 H 09/29/24 06:25 Blood Pressure Position Sitting 09/29/24 06:25 Pulse Oximetry 94 09/29/24 06:25 Oxygen Delivery Method Room Air 09/29/24 06:25 Vital Signs Temperature 98 F 09/29/24 06:25 Pulse Rate 81 09/29/24 06:25 Respiratory Rate 16 09/29/24 06:25 Blood Pressure 142/91 H 09/29/24 06:25 Pulse Oximetry 94 09/29/24 06:25 Oxygen Delivery Method Room Air 09/29/24 06:25 Temperature 98 F 09/29/24 06:25 Pulse Rate 81 09/29/24 06:25 Respiratory Rate 16 09/29/24 06:25 Blood Pressure 142/91 H 09/29/24 06:25 Pulse Oximetry 94 09/29/24 06:25 Oxygen Delivery Method Room Air 09/29/24 06:25 Discharge Plan Discharge Clinical Impression: Contusion of foot, left Patient Disposition: Home, Self-Care Condition: Stable Instructions: Foot Contusion (ED) Additional Instructions: Take Tylenol and ibuprofen as needed for pain Ice before and after activity Follow-up in 1 week as needed with your primary care doctor Activity Level: Activity as Tolerated Discharge Diet: Regular Prescriptions: No Action lurasidone 20 mg tablet PO naproxen sodium [Aleve] 220 mg capsule 440 mg PO QDAY oxcarbazepine 300 mg tablet 300 mg PO BID clonidine HCl 0.1 mg tablet 0.1 mg PO TID fluoxetine 40 mg capsule 40 mg PO DAILY trazodone 150 mg tablet 150 mg PO QDAY desmopressin 0.2 mg tablet 0.2 - 0.4 mg PO QPM lithium carbonate 450 mg tablet extended release 900 mg PO BID levothyroxine 200 mcg tablet 200 mcg PO DAILY Qty: 60 0RF hydrocodone-acetaminophen 5-325 mg tablet 1 tab PO Q4-6H PRN (Reason: pain) Qty: 30 0RF Follow Up/Referrals: Dara Oglesby PA-C [Primary Care Provider, Family Practice] Stand Alone Forms: [employer] Info Instructions
--- NOTE | 2024-09-29 06:17 | CRLHL7_ITS ---
For Patients: As a result of the Cures Act, medical imaging exams and procedure reports are released immediately into your electronic medical record. You may view this report before your referring provider. If you have questions, please contact your health care provider. Indication: Injury Technique: A total of three views of the left foot were acquired. Comparison: None Findings: Bones: Alignment is normal. No fractures or bone lesions. Joint spaces: Unremarkable. Soft tissues: Unremarkable. Impression: No acute fracture, dislocation or destructive process. Dictated by Silvino Santoyo MD @ 09/29/2024 6:40:28 AM (Electronically Signed)
[2024-09-29 06:25] VITALS: BP 142/91; PULSE 81; RESP 16; TEMP 36.6; O2SAT 94; BMI 38.5
== END 2024-09-29 06:52 | disposition home or self-care (01) ==
LOC: ED 06:34
PROVIDERS: Emergency Provider Family Medicine; PCP Physician Assistant Medical
DX: S90.32XA Contusion of left foot, initial encounter (principal); W20.8XXA Other cause of strike by thrown, projected or falling object, initial encounter
CPT/HCPCS: 73630; 99283; 99284